=== PATIENT | female | born 1940 | race African-American/Black ===

== ENCOUNTER 2018-01-17 14:44 | Emergency (ER) | payer MEDICARE, BC ==
[2016-09-29 17:35] VITALS: BMI 25.7
[~2018-01-17 14:44] MED LIST: AMOXICILLI400 MG/5 M PO; ARICEPT10 MG PO; BUMEX 1 MG TAB1 MG PO; COREG 3.1253.125 MG PO; FISH OIL 1,0001 CA1 PO; GABAPENTIN100 MG PO; GLUCOPHAGE500 MG PO; GLUCOTROL 5 MG T5 MG PO; JANUVIA100 MG PO; K-DUR20 MEQ PO; KLOR-CON M2020 MEQ PO; LEVAQUIN500 MG PO; LISINOPRIL5 MG PO; PLAVIX75 MG PO; PRILOSEC20 MG PO; PRINIVIL20 MG PO; PROBIOTIC1 EAC1 PO; SCOT-TUSSI10 MG/5 ML PO; ULTRAM50 MG PO; VITAMIN B-1250 MCG PO; ZOCOR40 MG PO
[2018-01-17 15:52] LABS: BASOPHILS 0.4 % (0-2); EOSINOPHILS 2.7 % (0-7); HEMATOCRIT 32.9 % (36.0-48.0); HEMOGLOBIN 10.4 g/dL (12-16); IMMATURE GRANULOCYTES 0.4 % (0-5); MCH 27.5 pg (26.0-34.0); MCHC 31.6 g/dL (31.0-37.0); MEAN PLATELET VOLUME 9.7 fL (7.4-10.4); MONOCYTES 7.5 % (2-11); PLATELET COUNT 199 10x3/uL (130-400); RBC 3.78 10x6/uL (4.00-5.40); RDW 14.5 % (11.5-14.5); WBC 5.2 10x3/uL (4.8-10.8)
[2018-01-17 16:18] LABS: ALBUMIN 3.5 g/dL (3.4-5.0); ALKALINE PHOSPHATASE 108 U/L (46-116); ALT (SGPT) 17 U/L (10-68); BILIRUBIN - TOTAL 0.81 mg/dL (0.2-1.3); CALC OSMOLALITY 285 mosm/kg (275-300); CALCIUM 8.6 mg/dL (8.5-10.1); CARBON DIOXIDE 26.2 mmol/L (21.0-32.0); CHLORIDE - SERUM 105 mmol/L (98-107); CREATININE - SERUM 1.5 mg/dL (0.6-1.3); GLUCOSE 146 mg/dL (74-106); POTASSIUM - SERUM 3.2 mmol/L (3.5-5.1); PROTEIN - SERUM 6.9 g/dL (6.4-8.2); SODIUM 141 mmol/L (136-145); UREA NITROGEN 18 mg/dL (7-18); eGFR NON AFRICAN AMERICAN 35 mL/min (90-120)
[2018-01-17 16:23] LABS: CKMB 1.5 U/L (0.0-3.6); CREATINE KINASE 88 UL (21-215); TROPONIN-I 0.039 ng/mL (0.000-0.060)
== END 2018-01-17 20:15 | disposition home or self-care (01) ==
LOC: D.ER 14:44
PROVIDERS: Family Medicine
DX: R07.89 Other chest pain (principal); I25.10 Atherosclerotic heart disease of native coronary artery without angina pectoris; E11.9 Type 2 diabetes mellitus without complications; E87.6 Hypokalemia; I45.10 Unspecified right bundle-branch block; I44.4 Left anterior fascicular block

== ENCOUNTER 2018-03-06 16:12 | Observation (INO) | payer MEDICARE, BC ==
[~2018-03-06] VITALS: Ht 157.5 cm; Wt 74.1 kg
[2018-03-06 17:40] VITALS: BP 159/66; Ht 157.5 cm; Wt 74.1 kg
[2018-03-06 18:23] LABS: ANION GAP 15.8 mmol/L (8-16); CALCIUM 8.6 mg/dL (8.5-10.1); CARBON DIOXIDE 25.2 mmol/L (21.0-32.0); CREATININE - SERUM 2.4 mg/dL (0.6-1.3)
[2018-03-06 20:11] VITALS: BP 122/58
[2018-03-07 00:11] VITALS: BP 123/41
[2018-03-07 05:39] VITALS: BP 99/53
[2018-03-07 06:02] LABS: CALCIUM 8.5 mg/dL (8.5-10.1); CARBON DIOXIDE 24.9 mmol/L (21.0-32.0); CREATININE - SERUM 2.2 mg/dL (0.6-1.3)
[2018-03-07 06:38] LABS: ANION GAP 15.1 mmol/L (8-16)
[2018-03-07 08:29] VITALS: BP 121/48
[2018-03-07 11:45] VITALS: BP 116/51
[2018-03-07] MEDS ORDERED: GLIMEPIRIDE1 MG PO (12:06)
[2018-03-07] MEDS ORDERED: ZOCOR40 MG PO (12:06)
== END 2018-03-07 15:03 | disposition home or self-care (01) ==
LOC: D.M2 16:12 → OBSVTIME 16:15 → D.M2 03-07 15:03
PROVIDERS: Internal Medicine Cardiovascular Disease
DX: I50.21 Acute systolic (congestive) heart failure (principal); I25.10 Atherosclerotic heart disease of native coronary artery without angina pectoris; I34.0 Nonrheumatic mitral (valve) insufficiency

== ENCOUNTER 2018-05-31 14:05 | Inpatient (IN) | payer MEDICARE, BC ==
[~2018-05-31] VITALS: Ht 154.9 cm; Wt 71.4 kg
--- NOTE | ~2018-05-31 | MORECARE ---
CASE MANAGEMENT DISCHARGE SUMMARY PATIENT: KIERRA BLAKE JET UNIT: [id number] ADM DATE: 05/31/18 AGE: 77 : 38 SEX: F ROOM/BED: D.[facility] [place] AUTHOR: CASE, INFORMATICS SCIENTIST PHYSICIAN: REFERRING PHYSICIAN: RESHMA HOROWITZ MD DATE OF SERVICE: 05/31/18 Discharge Plan Patient Name: KIERRA BLAKE Facility: [facility]:[place] : 1940 Planned Disposition: Home Anticipated Discharge Date: 06/02/18 Discharge Date: Expected LOS: 2 Initial Reviewer: [id number] Initial Review Date: 05/31/2018 Generated: 06/01/18 1:09 pm Patient Name: KIERRA BLAKE Page [phone] All edits/amendments must be made on the electronic document DICTATION DATE: 06/01/181207 JEWELRY RACKER: 06/01/18 1208 RPT#: [id number] DC DATE: STATUS: ADM IN [facility] [address] [place] [address] END OF REPORT
--- NOTE | ~2018-05-31 | HEMODYNAMI ---
PATIENT:KIERRA BLAKE MEDICAL RECORD: [id number] : 36 LOCATION:[facility] D.2114 ADMISSION DATE: 05/31/18 Generatedon:06/02/201810:01 Patient name: KIERRA BLAKE Patient #: [id number] : 1940 Date of study: 06/02/2018 Page: Of Hemodynamic Procedure Report Patient Data Patient Demographics Procedure consent was obtained First Name: KIERRA Gender: Female Last Name: LOU : 1940 [facility] Initial: JET Age: 77 year(s) Patient #: [id number] Race: Black SSN: [id number] Additional ID: [id number] Contact details [address]: [address] [place] [address] State: [place] City: [place] Zip code: [address] Past Medical History Allergies Allergen Reaction Date Comments Reported Other allergy 10/02/2016 Sulfa Admission Admission Data Admission Date: 05/31/2018 Admission Time: 18:58 Room #: D.2114 Procedure Procedure Types Cath Procedure Diagnostic Procedure PPM/ICD PPM Dual Implant Procedure Description Procedure Date Procedure Date: 06/02/2018 Procedure Start Time: 9:14 Procedure End Time: 10:00 Procedure Staff Name Function David Nguyen MD Performing Physician Jarrell Levi MD Assisting physician Marc Rahman RT Monitor Syed Todd RN Nurse Stuart Silva RT Scrub Procedure Data Cath Procedure Fluoroscopy Diagnostic fluoroscopy Total fluoroscopy Time: 2 time: 2 min min Diagnostic fluoroscopy Total fluoroscopy dose: 35 dose: 35 mGy mGy Contrast Material Contrast Material Type Amount (ml) Isovue 300 0 Estimated blood loss: 5 ml Procedure Complications No complications Procedure Medications Medication Administration Route Dosage 0.9% NaCl I.V. 100 ml/hr Oxygen etCO2 Nasal cannula 2 l/min Lidocaine 1% with added to field 20 ml Epi Bupivacaine 0.5% added to field 10 ml Ancef (1Gm/50ml NS) I.V.P.B 1 g Ancef Irrigation Topical 1 g (1gm/500ml NS) Versed I.V. 1 mg Fentanyl I.V. 50 mcg Versed I.V. 1 mg Fentanyl I.V. 50 mcg Hemodynamics Rest Heart Rate: 38 (bpm) Snapshots Pre Cath Intra NCS Post Cath Vital Signs Time Heart Resp SPO2 etCO2 NIBP (mmHg) Rhythm Pain Sedation Rate (ipm) (%) (mmHg) Status Level (bpm) 9:01:50 40 20 100 36.9 171/68(141) NSR 0 (11) 10(A) , No pain 9:06:25 39 12 100 40.7 142/54(110) NSR 0 (11) 10(A) , No pain 9:10:49 40 12 100 42.2 136/54(108) NSR 0 (11) 10(A) , No pain 9:16:17 86 24 100 45.3 154/66(122) NSR 0 (11) 10(A) , No pain 9:20:31 40 19 100 48.3 130/60(109) NSR 0 (11) 10(A) , No pain 9:24:43 52 18 100 50.5 123/67(112) NSR 0 (11) 9(A) , No pain 9:29:46 48 12 100 47.5 158/70(125) NSR 0 (11) 9(A) , No pain 9:34:14 44 18 100 48.3 130/55(104) NSR 0 (11) 9(A) , No pain 9:38:28 48 15 99 46 144/65(112) NSR 0 (11) 9(A) , No pain 9:42:48 47 15 100 44.5 144/62(107) NSR 0 (11) 9(A) , No pain 9:47:06 59 14 100 47.5 147/67(117) NSR 0 (11) 9(A) , No pain 9:51:26 65 18 100 44.5 147/67(117) NSR 0 (11) 9(A) , No pain 9:55:44 60 15 100 46.7 152/72(124) NSR 0 (11) 9(A) , No pain 10:00:05 59 15 100 42.9 162/72(127) NSR 0 (11) 9(A) , No pain Medications Time Medication Route Dose Verified Delivered Reason Notes Effective ness by by 9:09:52 0.9% NaCl I.V. 100 Syed Syed Per ml/hr Peyton Todd physician RN RN 9:10:07 Oxygen etCO2 2 Syed Syed Per Nasal l/min Peyton Sloanigan physician cannula RN RN 9:11:47 Lidocaine added 20 ml Syed Syed for local 1% with Epi to Lorigan Lorigan anesthetic field RN RN 9:12:10 Bupivacaine added 10 ml Syed Syed for local 0.5% to Lorigan Lorigan anesthetic field RN RN 9:12:25 Ancef I.V.P.B 1 g Syed Syed Per (1Gm/50ml Lorigan Lorigan physician NS) RN RN 9:12:39 Ancef Topical 1 g Syed Syed used for Irrigation Lorigan Lorigan procedure (1gm/500ml RN RN NS) 9:12:59 Versed I.V. 1 mg Syed Syed for Lorigan Lorigan sedation RN RN 9:13:10 Fentanyl I.V. 50 Syed Syed for mcg Lorigan Lorigan sedation RN RN 9:18:33 Versed I.V. 1 mg Syed Syed for Lorigan Lorigan sedation RN RN 9:18:39 Fentanyl I.V. 50 Syed Syed for mcg Lorigan Lorigan sedation RN lidar scientist Log Time Note 8:30:09 Medtronic assisted sales representative Rashard Hernandez present for procedure. 8:30:45 Marc Rahman RT(R) sent for patient. Start room use. 8:30:46 Time tracking: Regular hours (M-F 7:00 - 5:00) 8:30:51 Plan of Care:Hemodynamics will remain stable., Cardiac rhythm will remain stable., Comfort level will be maintained., Respiratory function will remain adequate., Patient/ family verbilizes understanding of procedure., Procedure tolerated without complication., Recovers from procedure without complications.. 8:44:51 Patient received from Med II to CCL 3 Alert and oriented. Tansferred to table in Supine position. 8:44:52 Warm blankets applied, and abdias hugger turned on for patient comfort. 8:44:53 Correct patient and procedure confirmed by team. 8:44:54 Signed procedure consent form obtained from patient. 8:44:55 Pre-procedure instructions explained to patient. 8:44:55 Pre-op teaching completed and patient verbalized understanding. 8:44:57 Family in patients room. 8:44:58 Patient NPO since Midnight. 8:59:24 ECG and BP/O2 sat monitors applied to patient. 8:59:24 Vital chart was started 8:59:27 Baseline sample Acquired. 8:59:33 Rhythm: sinus bradycardia 8:59:35 Full Disclosure recording started 8:59:42 H&P Date Dictated: 06/01/2018 Within 30 days and on chart.. 8:59:51 Is the patient allergic to Iodine/contrast media? No. 8:59:53 Is patient on blood thinner?Yes 8:59:55 ACC The patient was administered the following blood thiners within the last 24 hours: ACCPlavix 8:59:57 Patient diabetic? Yes. 8:59:58 If diabetic: On Metformin? No 9:00:01 Previous problem with sedation/anesthesia? Yes Difficulty waking up 9:00:03 Snore? Yes 9:00:04 Sleep apnea? Yes 9:00:06 Deviated septum? No 9:00:22 Opens mouth fully? Yes 9:00:22 Sticks out tongue? Yes 9:00:24 Airway obstruction? No ? 9:00:38 Dentures? No ? 9:00:42 Patient pain scale 0/10 ?. 9:00:46 IV patent on arrival in left forearm with 0.9% NaCl at KVO. 9:00:48 Lab results completed and on chart. 9:00:52 Left chest area was prepped with chlora-prep and draped in sterile fashion 9:00:53 Alarms reviewed by R. N. 9:00:54 Sharps counted by scrub and verified by R.N. 9:01:43 Pre sharps counted by scrub and verified by RN: Sutures: 14; Sponges: 5; Stick needles: 2; Skin needles: 2; Blade: 1; Cautery: 1 9:01:46 Grounding pad site Left thigh. 9:01:48 Grounding pad site free from injury. 9:02:57 Use device set JESSA PPM 9:03:00 Immobilizer Sling Medium opened to sterile field. 9:03:03 Mepilex Dressing (711791) opened to sterile field. 9:03:04 Cautery Pushbutton Pencil opened to sterile field. 9:03:04 Cautery Tip Contracting Analyst opened to sterile field. 9:03:07 2-0 Ticron Multipack ([id number]) opened to sterile field. 9:03:10 3-0 Vicryl Single Pack [id number] opened to sterile field. 9:03:28 3-0 Vicryl Multipack [id number] opened to sterile field. 9:03:53 Medtronic Advisa MRI PPM Dual Generator [id number] opened to sterile field. 9:03:53 Medtronic 4074-52 PPM Lead opened to sterile field. 9:03:54 Medtronic 4574-45 PPM Lead opened to sterile field. 9:09:52 0.9% NaCl 100 ml/hr I.V. was administered by Syed Todd RN; Per physician; 9:10:07 Oxygen 2 l/min etCO2 Nasal cannula was administered by Syed Todd RN; Per physician; 9:11:10 --------ALL STOP TIME OUT------ 9:11:11 Final Timeout: patient, procedure, and site verified with staff and physician. All members of the team are in agreement. 9:11:16 Left chest site verified by team. 9:11:22 Physical assessment completed. ASA score P 2 - A patient with mild systemic disease as per David Nguyen MD. 9:11:26 Sedation plan: IV Moderate Sedation Medication:Versed, Fentanyl 9:11:47 Lidocaine 1% with Epi 20 ml added to field was administered by Syed Todd RN; for local anesthetic; 9:12:10 Bupivacaine 0.5% 10 ml added to field was administered by Syed Todd RN; for local anesthetic; 9:12:25 Ancef (1Gm/50ml NS) 1 g I.V.P.B was administered by Syed Todd RN; Per physician; 9:12:39 Ancef Irrigation (1gm/500ml NS) 1 g Topical was administered by Syed Todd RN; used for procedure; 9:12:59 Versed 1 mg I.V. was administered by Syed Todd RN; for sedation; 9:13:10 Fentanyl 50 mcg I.V. was administered by Syed Lorigan RN; for sedation; 9:14:08 Procedure started. 9:14:19 Lidocaine 1% w/epi and Bupivacaine 0.5% was administered to left subclavicular area by Jarrell Levi MD . 9:14:50 Incision made to left subclavicular area. 9:17:24 Generator pocket made/opened. 9:18:33 Versed 1 mg I.V. was administered by Syed Todd RN; for sedation; 9:18:39 Fentanyl 50 mcg I.V. was administered by Syed Todd RN; for sedation; 9:27:26 Left subclavian vein accessed with 9Fr Peel Away Sheath. 9:28:35 Ventricular lead inserted and advanced. 9:28:41 Peel-a-way sheath was split and removed. 9:29:11 Sheath wire left down and 7fr sheath inserted over that wire. 9:29:21 Atrial lead inserted and advanced. 9:31:42 Ventricular lead positioned. 9:31:45 Ventricular lead tested. 9:32:58 Ventricular lead attachment was completed with 2-0 ticron. 9:38:43 Atrial lead positioned. 9:38:45 Atrial lead tested. 9:40:50 Atrial lead attachment was completed with 2-0 ticron. 9:43:52 PPM Dual was attached to lead(s) and inserted into pocket. 9:47:01 2-0 Ticron Multipack ([id number]) opened to sterile field. 9:47:02 Generator was sutured in place with 2-0 ticron. 9:47:06 Device pocket was irrigated with Ancef. 9:50:27 Subcutaneous closure was completed with 3-0 vicryl. 9:54:31 Skin closure was completed with 3-0 vicryl. 9:57:26 Lt Chest incision was dressed with Mepilex dressing. 9:57:32 Procedure ended.(Physican Out) 9:57:48 Fluoroscopy time 02.00 minutes. 9:57:53 Flurop Dose total: 35 9:57:53 Fluoroscopy dose: 35 mGy 9:57:59 Contrast amount:Isovue 300 0ml. 9:58:01 Sharps counted by scrub and verified by R.N. 9:59:15 Post sharps counted by scrub and verified by RN: Sutures: 19; Sponges: 5; Stick needles: 2; Skin needles: 2; Blade: 1; Cautery: 1 9:59:20 Insertion/operative site no bleeding no hematoma. 9:59:26 Post-procedure physical assessment completed. ASA score P 2 - A patient with mild systemic disease as per David Nguyen MD. 9:59:36 Post procedure rhythm: paced 9:59:46 Estimated blood loss: 5 ml 9:59:48 Post procedure instruction explained to patient.Patient verbalizes understanding. 9:59:49 Patient needs reinforcement of post procedure teaching. 10:00:02 Procedure Complication : No complications 10:00:33 Procedure and supply charges have been captured, reviewed, submitted and are correct. 10:00:36 Vital chart was stopped 10:00:36 See physician's report for complete and final results. 10:00:38 Report given to PCU. 10:00:42 Patient transfered to PCU with Bed. 10:00:44 Procedure ended. 10:00:44 Full Disclosure recording stopped 10:00:48 End room use (Document Last) Device Usage Item Name Manufacture Quantity Catalog Hospital Part Current Minimal Lot# / Number Charge Number Stock Stock Serial# Code Immobilizer Cardinal 1 [id number] 5 Sling Medium Health Mepilex Cardinal 1 408659 312775 535676 353413 5 Dressing Health (930768) Cautery Microtek 1 [id number] 597273 82934 049256 5 Pushbutton Medical Inc. Pencil Cautery Tip Microtek 1 [id number] 827681 007655 210178 5 Contracting Analyst Medical Inc. 2-0 Ticron Ethicon 2 [id number] 707054 81338 030940 5 Multipack ([id number]) 3-0 Vicryl Ethicon 1 [id number] 562426 954551 5 Single Pack [id number] 3-0 Vicryl Ethicon 1 [id number] 898174 571637 167402 5 Multipack [id number] Medtronic Medtronic 1 [id number] 221626 875381 5 [id number] Advisa MRI EXP PPM Dual 19 Generator [id number] Medtronic Medtronic 1 4074-52 859899 227945 5 [id number] 4-52 PPM EXP Lead 24-20 Medtronic Medtronic 1 4574-45 454100 240229 5 [id number] 4574-45 PPM EXP 03-06-20 Lead Signature Audit [place] Stage Time Signature Unsigned Intra-Procedure 06/02/2018 Marc Rahman 10:01:10 AM RT(R) Signatures Monitor : Marc Rahman RT Signature : Date : Time : [place] [address] [place] [address]
--- NOTE | ~2018-05-31 | OP ---
PATIENT NAME: ROOPA BLAKE MEDICAL RECORD: [id number] :36 LOCATION:D.M2 D.2114 ADMISSION DATE:05/31/18 SURGEON: CARLOS ALBERTO RENNER MD DATE OF OPERATION: 06/02/2018 PROCEDURE: Lead portion of permanent pacemaker placement. INDICATION: Mobitz II high-degree AV block, symptomatic. DESCRIPTION OF PROCEDURE: After left subclavian was cannulated via modified Seldinger technique via Dr. Levi, first, under fluoroscopic guidance, I placed the RV lead in RV apex without difficulty. After adequate R waves and thresholds were obtained, we then placed right atrial lead in right atrial appendage without difficulty. After adequate R waves and thresholds were again obtained, leads were attached to appropriate poles of the generator and the pocket was closed via Dr. Levi. IMPRESSION: Successful lead portion of permanent pacemaker placement on Roopa Blake. COMPLICATIONS: None. ESTIMATED BLOOD LOSS: Minimal. DISPOSITION: To the floor, stable. TRANSINT:[id number] Voice Confirmation ID: [id number] DOCUMENT ID: [id number] CARLOS ALBERTO RENNER MD at 1117 CC: [id number] DICTATION DATE: 06/02/18 0946 WIRE BOUND BOX MACHINE HELPER: 06/02/18 1352 ADM IN [place] [id number] [place] [id number]
--- NOTE | ~2018-05-31 | CN ---
PATIENT NAME:KIERRA BLAKE MEDICAL RECORD: [id number] : 36 LOCATION:. D.2114 ADMIT DATE: 05/31/18 ACCOUNT: [id number] CONSULTING PHYSICIAN: CARLOS ALBERTO RENNER MD REFERRING PHYSICIAN: RESHMA HOROWITZ MD DATE OF CONSULTATION: 06/01/2018 HISTORY OF PRESENT ILLNESS: A 77-year-old lady with a history of cardiomyopathy, EF 35% to 40%, history of hyperlipidemia presented to outside clinic with nausea, was found to be bradycardiac. In talking to the patient, she believes she took extra carvedilol, although even double dose at her current dose she has not been hypotensive. No other symptomatology actually. We are asked to see her concerning her cardiovascular status. PAST MEDICAL HISTORY: Includes: 1. History of cardiomyopathy as described above. 2. Hypertension. 3. Hyperlipidemia. 4. Coronary artery bypass grafting. ALLERGIES: CONTRAST, SULFA. MEDICATIONS: Include simvastatin 40 every day, carvedilol 3.125 b.i.d., Plavix 75 every day, Amaryl 1 mg every day, Januvia 100 mg p.o. every day, Bumex 1 mg every day. SOCIAL HISTORY: Lives in the [facility]. She is a nonsmoker, nondrinker. Easily takes care of all her ADLs. REVIEW OF SYSTEMS: The patient reports easy bruising but reports no swollen glands. The patient reports no fever, no night sweats, no significant weight gain, no significant weight loss. No significant exercise tolerance. The patient reports no dry eyes, no irritation, no vision change. Patient reports no difficulty hearing and no ear pain. Patient reports no frequent nose bleeds or nose and sinus problems. Patient reports on arm pain on exertion. No shortness of breath while lying down. No history of heart murmur. Patient reports no cough, no wheezing or coughing up blood. Patient reports no abdominal pain, no vomiting. Normal appetite. No diarrhea and not vomiting blood. No nausea and no constipation. Patient reports no incontinence. No difficulty urinating. No hematuria. No increased frequency. Patient reports no muscle aches. No weakness, no arthralgias, no back pain. No swelling of the extremities. Patient reports no abnormal mole, no jaundice, no rashes. Reports no loss of consciousness. No weakness and no numbness. No seizures, dizziness, or headaches. The patient reports no depression, no sleep disturbance, feeling safe in a relationship and no alcohol abuse. Patient reports on fatigue. Reports no runny nose or sinus pressure. No itching, no hives, and no frequent sneezing. PHYSICAL EXAMINATION: GENERAL: Pleasant female, appears stated age, in no acute distress. HEENT: Normocephalic, atraumatic. NECK: No bruits noted. HEART: Bradycardic, regular, II/ systolic ejection murmur. LUNGS: Good air excursion. ABDOMEN: Soft, nontender. CONSULT REPORT [id number] KIERRA BLAKE EXTREMITIES: Pulses 2+ with no edema. NEUROLOGIC: Grossly intact. DIAGNOSTIC DATA: EKG shows sinus bradycardia with first-degree block. IMPRESSION: Suspect may have true sick sinus syndrome at this point, fairly bradycardic for even double dose of her carvedilol. However, if she feels, given her lack of symptoms etc., would prefer to defer pacemaker and further invasive workup at this time. If she remains stable, could consider discharge with follow up with a 30-day monitor in our office. TRANSINT:[id number] Voice Confirmation ID: [id number] DOCUMENT ID: [id number] CARLOS ALBERTO RENNER MD at 1116 CC: [id number] DICTATION DATE: 06/01/18 1010 VENEER SPLICER: 06/01/18 1116 ADM IN [place] [id number] [place] [address]
--- NOTE | ~2018-05-31 | OP ---
PATIENT NAME: KIERRA BLAKE MEDICAL RECORD: [id number] :36 LOCATION:D.M2 D.2114 ADMISSION DATE:05/31/18 SURGEON: SHANIKA VÁZQUEZ MD DATE OF OPERATION: 06/02/2018 PREOPERATIVE DIAGNOSIS: Mobitz II heart block. POSTOPERATIVE DIAGNOSIS: Mobitz II heart block. PROCEDURES: Creation of pacemaker pocket. Introduction of atrial and ventricular leads into the vascular system. Placement of pacemaker generator into the pacemaker pocket with closure. This was a co-surgeon case. FACILITIES MAINTENANCE SUPERVISOR: David Breaux MD SURGEON: Shanika Vázquez MD BLOOD LOSS: Minimal. ANESTHESIA: Local with IV sedation. COMPLICATIONS: None. This was a cosurgeon case. Due to the complexity of the operation, it was necessary to have 2 attending surgeons present, a tennis camp instructor and a general surgeon. DESCRIPTION OF PROCEDURE: The patient was conveyed to the cardiac catheterization laboratory on 06/02/2018. IV sedation was induced by the nursing staff under my direction. The left chest was sterilely prepped and draped. A local anesthetic was used to infiltrate the skin and subcutaneous tissues inferior to the left clavicle. A transverse incision was accomplished inferior to the left clavicle. A subcutaneous pocket was fashioned bluntly in a caudad direction. I had an senior it assistant pull down on the left arm toward the foot. Through the pacemaker pocket, I was able to advance a needle under the left clavicle, utilizing an antegrade approach to the subclavian vein. This was visualized under fluoroscopy. A guidewire passed easily. This was visualized under fluoroscopy as well. A 9-Niuean dilator sheath was advanced over the wire. This was visualized under fluoroscopic guidance. The dilator was removed. Through the 9-Niuean sheath, the ventricular lead was advanced. Dr. Oliva positioned the ventricular lead. Appropriate thresholds were obtained. I then sutured the ventricular lead down to the underlying pectoralis fascia with 2-0 TiCron times 2. Over the secondary wire, a 7-Niuean dilator sheath was advanced. This was visualized under fluoroscopic guidance. The dilator and wire were removed. Through the sheath, an atrial lead was advanced. The Peel-Away sheath was then removed. Dr. Oliva then positioned the atrial lead. Appropriate thresholds were obtained. I then sutured the atrial lead down to the underlying pectoralis fascia with 2-0 TiCron times 2. The pacemaker generator was then brought onto the sterile field. I confirmed with the pacemaker distribution sales representative the serial number on the ventricular lead. It was then placed within the ventricular dock of the pacemaker and tightened down with the wrench. I tried to dislodge the ventricular lead and was unable to do so. I then confirmed with pacemaker distribution sales representative the serial number on the atrial lead. This was placed in the atrial dock of the pacemaker generator and then OPERATIVE REPORT [id number] KIERRA BLAKE JET tightened down with the wrench. I tried to dislodge the atrial lead and was unable to do so. The pacemaker generator and wires were then placed in the pacemaker pocket. Care was paid to place the wires posterior to the generator. The pacemaker was then sutured to the underlying pectoralis fascia with 2-0 TiCron times 1. I irrigated the pacemaker pocket. There was no bleeding even at low pressure of 8. The deep adipose tissue was closed with interrupted 3-0 Vicryls. The subcutaneous adipose tissue was closed with interrupted 3-0 Vicryls. The skin was approximated with a running intracuticular 3-0 Vicryl. A sterile dressing was applied. We then examined the pacemaker generator and the wires again. The wires appeared to have been well placed and had not been dislodged. The pacemaker generator appeared to be in good position. There was no radiographic evidence of complication. The patient was then conveyed back to their room. I will see the patient on a p.r.n. basis. There is no need for the patient to follow up with me unless the patient develops a complication related to this operative procedure. My involvement in the procedure was creation of the pacemaker pocket, vascular access into the central venous system, placement of the pacemaker generator into the pocket and then closure. TRANSINT:[id number] Voice Confirmation ID: [id number] DOCUMENT ID: [id number] SHANIKA VÁZQUEZ MD at 1023 CC: RESHMA HOROWITZ MD and DAVID RENNER MD [id number] DICTATION DATE: 06/02/18 1012 NEWS VIDEOTAPE EDITOR: 06/02/18 1408 DIS IN 06/03/18 [facility] [address] [place] [address]
[~2018-05-31 14:05] MED LIST changes: +GLIMEPIRIDE1 MG PO
[2018-05-31 15:15] VITALS: BP 159/64
[2018-05-31 15:28] LABS: BASOPHILS 0.2 % (0-2); EOSINOPHILS 2.7 % (0-7); HEMATOCRIT 36.5 % (36.0-48.0); HEMOGLOBIN 12.1 g/dL (12-16); IMMATURE GRANULOCYTES 0.2 % (0-5); MCH 26.4 pg (26.0-34.0); MCHC 33.2 g/dL (31.0-37.0); MCV 79.5 fL (80.0-100.0); MEAN PLATELET VOLUME 10.2 fL (7.4-10.4); MONOCYTES 6.5 % (2-11); NEUTROPHILS 50.4 % (40-80); RBC 4.59 10x6/uL (4.00-5.40); RDW 15.5 % (11.5-14.5)
[2018-05-31 15:29] LABS: PLATELET COUNT 146 10x3/uL (130-400)
[2018-05-31 15:30] LABS: APPEARANCE CLEAR (CLEAR); BILIRUBIN NEGATIVE (NEGATIVE); COLOR STRAW (YELLOW); GLUCOSE 100 mg/dL (NEGATIVE); KETONE NEGATIVE (NEGATIVE); NITRITE NEGATIVE (NEGATIVE); PROTEIN NEGATIVE (NEGATIVE); UROBILINOGEN NORMAL (NORMAL)
[2018-05-31 15:32] LABS: EPITHELIAL CELLS 0-5 /hpf (0-5); RED CELLS - URINE 0-5 /hpf (0-5); WHITE CELLS - URINE 0-5 /hpf (0-5)
[2018-05-31 15:33] LABS: BACTERIA FEW /hpf (NONE SEEN)
[2018-05-31 15:41] LABS: APTT 22.3 SECONDS (22.8-39.4); INR 1.05 (0.85-1.17); PROTIME 13.3 SECONDS (11.6-15.0)
[2018-05-31 15:42] LABS: D-DIMER-QUANTITATIVE 1.71 ug/mLFEU (0.20-0.54)
[2018-05-31 15:45] LABS: ALBUMIN 3.4 g/dL (3.4-5.0); ALKALINE PHOSPHATASE 118 U/L (46-116); ALT (SGPT) 23 U/L (10-68); BILIRUBIN - TOTAL 0.87 mg/dL (0.2-1.3); CALC OSMOLALITY 292 mosm/kg (275-300); CALCIUM 9.1 mg/dL (8.5-10.1); CARBON DIOXIDE 30.5 mmol/L (21.0-32.0); CHLORIDE - SERUM 103 mmol/L (98-107); CREATININE - SERUM 1.5 mg/dL (0.6-1.3); POTASSIUM - SERUM 3.8 mmol/L (3.5-5.1); SODIUM 140 mmol/L (136-145); UREA NITROGEN 21 mg/dL (7-18); eGFR NON AFRICAN AMERICAN 35 mL/min (90-120)
[2018-05-31 15:46] LABS: GLUCOSE 289 mg/dL (74-106)
[2018-05-31 15:58] LABS: CKMB 1.2 U/L (0.0-3.6); LIPASE 395 U/L (73-393); TROPONIN-I 0.016 ng/mL (0.000-0.060)
[2018-05-31 16:15] VITALS: BP 146/68
[2018-05-31 17:00] VITALS: BP 168/99
[2018-05-31 19:05] LABS: T4 THYROXIN - FREE 1.33 ng/dL (0.76-1.46); THYROID STIMULATING HORMONE 1.72 uIU/mL (0.36-3.74)
[2018-05-31 19:31] VITALS: BP 168/99
[2018-05-31 20:16] LABS: % SATURATION 26 % (15-55); IRON 87 ug/dl (35-150); TOTAL IRON BIND CAPACITY 330 ug/dl (260-445); UNSAT IRON BIND CAPACITY 243 ug/dl (150-375)
[2018-05-31 20:22] LABS: CKMB 1.1 U/L (0.0-3.6); CREATINE KINASE 87 UL (21-215)
[2018-05-31 22:22] VITALS: BP 156/54; Ht 154.9 cm; Wt 71.4 kg
[2018-06-01] VITALS: BP 150/48
[2018-06-01 01:46] LABS: CREATINE KINASE 79 UL (21-215); TROPONIN-I 0.025 ng/mL (0.000-0.060)
[2018-06-01 04:00] VITALS: BP 142/44
[2018-06-01 05:05] LABS: BASOPHILS 0.3 % (0-2); EOSINOPHILS 3.6 % (0-7); HEMATOCRIT 34.5 % (36.0-48.0); HEMOGLOBIN 11.1 g/dL (12-16); IMMATURE GRANULOCYTES 0.3 % (0-5); LYMPHOCYTES 39.2 % (15-50); MCH 25.7 pg (26.0-34.0); MCHC 32.2 g/dL (31.0-37.0); MCV 79.9 fL (80.0-100.0); MEAN PLATELET VOLUME 10.4 fL (7.4-10.4); MONOCYTES 8.8 % (2-11); NEUTROPHILS 47.8 % (40-80); PLATELET COUNT 150 10x3/uL (130-400); RBC 4.32 10x6/uL (4.00-5.40); RDW 15.4 % (11.5-14.5); WBC 3.7 10x3/uL (4.8-10.8)
[2018-06-01 05:19] LABS: ALBUMIN 3.1 g/dL (3.4-5.0); ALKALINE PHOSPHATASE 110 U/L (46-116); ALT (SGPT) 22 U/L (10-68); BILIRUBIN - TOTAL 1.05 mg/dL (0.2-1.3); CALCIUM 8.9 mg/dL (8.5-10.1); CHLORIDE - SERUM 105 mmol/L (98-107); CKMB 0.9 U/L (0.0-3.6); CREATINE KINASE 69 UL (21-215); CREATININE - SERUM 1.5 mg/dL (0.6-1.3); PROTEIN - SERUM 6.4 g/dL (6.4-8.2); SODIUM 143 mmol/L (136-145); TROPONIN-I 0.024 ng/mL (0.000-0.060); UREA NITROGEN 21 mg/dL (7-18); eGFR NON AFRICAN AMERICAN 35 mL/min (90-120)
[2018-06-01 05:20] LABS: CALC OSMOLALITY 293 mosm/kg (275-300); GLUCOSE 199 mg/dL (74-106)
[2018-06-01 07:44] VITALS: BP 143/50
[2018-06-01 11:23] VITALS: BP 137/49
[2018-06-01 14:56] VITALS: BP 134/47
[2018-06-01 20:57] VITALS: BP 148/52
[2018-06-02 06:32] LABS: BASOPHILS 0.2 % (0-2); EOSINOPHILS 2.9 % (0-7); HEMATOCRIT 32.5 % (36.0-48.0); HEMOGLOBIN 10.7 g/dL (12-16); IMMATURE GRANULOCYTES 0.2 % (0-5); LYMPHOCYTES 33.4 % (15-50); MCH 26.1 pg (26.0-34.0); MCHC 32.9 g/dL (31.0-37.0); MCV 79.3 fL (80.0-100.0); MEAN PLATELET VOLUME 9.8 fL (7.4-10.4); NEUTROPHILS 55.3 % (40-80); PLATELET COUNT 135 10x3/uL (130-400); RDW 14.8 % (11.5-14.5)
[2018-06-02 06:38] LABS: WBC 4.8 10x3/uL (4.8-10.8)
[2018-06-02 06:39] LABS: ANION GAP 8.6 mmol/L (8-16); CALCIUM 8.5 mg/dL (8.5-10.1); CARBON DIOXIDE 31.5 mmol/L (21.0-32.0); CREATININE - SERUM 1.6 mg/dL (0.6-1.3); POTASSIUM - SERUM 3.1 mmol/L (3.5-5.1)
[2018-06-02 07:55] VITALS: BP 145/53
[2018-06-02 11:33] VITALS: BP 103/59
[2018-06-02 15:30] VITALS: BP 137/59
[2018-06-02 21:07] VITALS: BP 129/55
[2018-06-03 01:16] VITALS: BP 153/61
[2018-06-03 05:10] VITALS: BP 125/53
[2018-06-03 06:58] LABS: BASOPHILS 0.2 % (0-2); EOSINOPHILS 1.4 % (0-7); HEMATOCRIT 31.6 % (36.0-48.0); HEMOGLOBIN 10.3 g/dL (12-16); IMMATURE GRANULOCYTES 0.2 % (0-5); LYMPHOCYTES 29.3 % (15-50); MCH 25.8 pg (26.0-34.0); MCHC 32.6 g/dL (31.0-37.0); MCV 79.2 fL (80.0-100.0); MEAN PLATELET VOLUME 10.2 fL (7.4-10.4); NEUTROPHILS 61.9 % (40-80); PLATELET COUNT 144 10x3/uL (130-400); RBC 3.99 10x6/uL (4.00-5.40); WBC 5.8 10x3/uL (4.8-10.8)
[2018-06-03 07:17] LABS: ANION GAP 7.2 mmol/L (8-16); CALCIUM 8.4 mg/dL (8.5-10.1); CARBON DIOXIDE 32.3 mmol/L (21.0-32.0); CREATININE - SERUM 1.4 mg/dL (0.6-1.3)
[2018-06-03 07:18] LABS: POTASSIUM - SERUM 3.5 mmol/L (3.5-5.1)
[2018-06-03 10:00] VITALS: BP 155/57
[2018-06-04 05:14] LABS: FOLATE (FOLIC ACID) - SERUM >20.0 ng/mL (>3.0)
== END 2018-06-03 15:15 | disposition home or self-care (01) | DRG 243 ==
LOC: D.ER 14:05 → D.M2 18:58 → D.EDHOLD 18:58 → D.M2 19:02
PROVIDERS: Family Medicine; Internal Medicine Interventional Cardiology; Internal Medicine Nephrology
PROC: 02H63JZ Insertion of Pacemaker Lead into Right Atrium, Percutaneous Approach (ICD-10-PCS; 2018-06-02)
PROC: 02HK3JZ Insertion of Pacemaker Lead into Right Ventricle, Percutaneous Approach (ICD-10-PCS; 2018-06-02)
PROC: 0JH606Z Insertion of Pacemaker, Dual Chamber into Chest Subcutaneous Tissue and Fascia, Open Approach (ICD-10-PCS; principal; 2018-06-02 08:30)
DX: I44.1 Atrioventricular block, second degree (principal); N17.9 Acute kidney failure, unspecified; I10 Essential (primary) hypertension; I25.10 Atherosclerotic heart disease of native coronary artery without angina pectoris; Z95.1 Presence of aortocoronary bypass graft; E11.51 Type 2 diabetes mellitus with diabetic peripheral angiopathy without gangrene; D50.9 Iron deficiency anemia, unspecified

== ENCOUNTER 2019-03-12 19:55 | Observation (INO) | payer MEDICARE, BC ==
[~2019-03-12] VITALS: Ht 154.9 cm; Wt 65.6 kg
[2019-03-12 21:15] VITALS: BP 158/72
--- NOTE | 2019-03-12 21:15 | NUR ---
ORANGE JUICE AND PEANUT BUTTER AND CRACKERS PROVIDED AT THIS TIME.
--- NOTE | 2019-03-12 21:28 | NUR ---
PT GONE FOR SCAN VIA STRETCHER.
--- NOTE | 2019-03-12 22:01 | NUR ---
PT RETURNED FROM RADIOLOGY.
--- NOTE | 2019-03-12 22:08 | NUR ---
SPOKE WITH PT'S DAUGHTER JENNA AT [phone], PT VERBALIZES CONSENT TO INFORM HER OF PT'S CONDITION AND PLAN OF CARE, INFORMED DAUGHTER THAT WE ARE WAITING ON RESULTS OF PT'S VQ SCAN. VERBALIZES UNDERSTANDING, WILL CONTACT WHEN RESULTS ARE AVAILABLE.
--- NOTE | 2019-03-12 22:46 | NUR ---
PLAN OF CARE DISCUSSED WITH PT, PT VERBALIZES UNDERSTANDING. PT REQUEST HEAD OF BED BE LOWERED, DENIES ANY FURTHER NEEDS AT THIS TIME. WILL CONTINUE TO MONITOR.
[2019-03-12 22:56] LABS: BASOPHILS 0.2 % (0-2); EOSINOPHILS 3.3 % (0-7); HEMATOCRIT 31.6 % (36.0-48.0); HEMOGLOBIN 10.2 g/dL (12-16); IMMATURE GRANULOCYTES 0.4 % (0-5); LYMPHOCYTES 24.2 % (15-50); MCH 26.8 pg (26.0-34.0); MCHC 32.3 g/dL (31.0-37.0); MCV 82.9 fL (80.0-100.0); MEAN PLATELET VOLUME 10.3 fL (7.4-10.4); MONOCYTES 7.2 % (2-11); NEUTROPHILS 64.7 % (40-80); PLATELET COUNT 152 10x3/uL (130-400); RBC 3.81 10x6/uL (4.00-5.40); RDW 15.1 % (11.5-14.5); WBC 5.1 10x3/uL (4.8-10.8)
[2019-03-12 23:09] LABS: ALBUMIN 3.3 g/dL (3.4-5.0); ALKALINE PHOSPHATASE 128 U/L (46-116); ALT (SGPT) 52 U/L (10-68); BILIRUBIN - TOTAL 1.05 mg/dL (0.2-1.3); CALC OSMOLALITY 284 mosm/kg (275-300); CALCIUM 8.9 mg/dL (8.5-10.1); CARBON DIOXIDE 25.6 mmol/L (21.0-32.0); CHLORIDE - SERUM 108 mmol/L (98-107); CREATININE - SERUM 1.6 mg/dL (0.6-1.3); POTASSIUM - SERUM 3.6 mmol/L (3.5-5.1); PROTEIN - SERUM 6.5 g/dL (6.4-8.2); SODIUM 140 mmol/L (136-145); UREA NITROGEN 23 mg/dL (7-18); eGFR NON AFRICAN AMERICAN 33 mL/min (90-120)
[2019-03-12 23:10] LABS: GLUCOSE 141 mg/dL (74-106)
[2019-03-12 23:26] LABS: CKMB 1.8 U/L (0.0-3.6); CREATINE KINASE 81 UL (21-215)
[2019-03-12 23:30] LABS: TROPONIN-I 0.084 ng/mL (0.000-0.060)
[2019-03-13 05:20] VITALS: BP 148/70
[2019-03-13 08:00] VITALS: BP 144/68
--- NOTE | 2019-03-13 09:25 | NUR ---
I have reviewed this patient and I concur with the Shift Assessment completed by the Licensed Practical Nurse today this shift.
--- NOTE | 2019-03-13 09:36 | NUR ---
MORNING ROUNDS MADE. PT SITTING UP IN BED. A/O X 4. UP AB RENETTA. DENIES PAIN AT THIS TIME. REAPPLIED TELE LEADS, PACED 69. IV TO L FA, PATENT, NO REDNESS OR EDEMA NOTED, DRSG C/D/I. RM AIR. BREATHING EVEN AND UNLABORED. SCD ON. VITALS STABLE. TOOK MEDS WITHOUT DIFFICULTY. NO FURTHER CONCENRS AT THIS TIME. FALL PRECAUTIONS IN PLACE. NON SKID SOCKS ON. BED LOWERED AND LOCKED. CL IN REACH. WILL CTM.
--- NOTE | 2019-03-13 11:06 | NUR ---
EKG DONE, RESULTS PUT IN PT CHART
[2019-03-13 12:36] VITALS: BMI 27.3
[2019-03-13 12:38] VITALS: BP 178/84
[2019-03-13 16:30] VITALS: BP 182/81
--- NOTE | 2019-03-13 16:56 | NUR ---
PT STATES THAT TAKING HER JANUVIA AT HOME CONTROLS HER BS BP ALSO 182/81 IN R ARM, 183/90 IN LEFT ARM. WILL CONTACT PHYSICIAN ABOUT BP.
--- NOTE | 2019-03-13 17:46 | NUR ---
NASIR NOTIFIED OF PT BP. STATED SHE WOULD START ORDERS FOR APRESOLINE. NO FURTHER ORDERS AT THIS TIME.
--- NOTE | 2019-03-13 17:56 | NUR ---
IV APRESOLINE 10 MG GIVEN TO ELEVATED BP OF 180/90
--- NOTE | 2019-03-13 19:20 | NUR ---
REPORT RECIEVED AND ROUNDING COMPLETE. PT STANDING UP WALKING AROUND ROOM. PT ASKED IF WE HAVE A PHONE FITNESS AND WELLNESS MANAGER THAT MATCHES HER PHONE. PT STATES SHE IS TIRED OF LAYING IN BED. NO S/SX OF DISTRESS AT THIS TIME. CALL LIGHT WITHIN REACH AND BED IN LOWEST POSITION. STATES NO OTHER NEEDS AT THIS TIME.
[2019-03-13 20:00] VITALS: BP 146/63
[2019-03-14] VITALS: BP 164/81
[2019-03-14 04:00] VITALS: BP 168/84
[2019-03-14 07:15] LABS: BASOPHILS 0.2 % (0-2); EOSINOPHILS 2.3 % (0-7); HEMATOCRIT 29.4 % (36.0-48.0); HEMOGLOBIN 9.6 g/dL (12-16); IMMATURE GRANULOCYTES 0.4 % (0-5); LYMPHOCYTES 17.9 % (15-50); MCH 26.8 pg (26.0-34.0); MCHC 32.7 g/dL (31.0-37.0); MCV 82.1 fL (80.0-100.0); MEAN PLATELET VOLUME 9.8 fL (7.4-10.4); MONOCYTES 9.4 % (2-11); NEUTROPHILS 69.8 % (40-80); PLATELET COUNT 134 10x3/uL (130-400); RBC 3.58 10x6/uL (4.00-5.40); WBC 5.6 10x3/uL (4.8-10.8)
[2019-03-14 07:34] LABS: ANION GAP 16.7 mmol/L (8-16); CALCIUM 8.6 mg/dL (8.5-10.1); CARBON DIOXIDE 21.8 mmol/L (21.0-32.0); CREATININE - SERUM 1.5 mg/dL (0.6-1.3); POTASSIUM - SERUM 3.5 mmol/L (3.5-5.1)
[2019-03-14 07:36] VITALS: BP 113/80
--- NOTE | 2019-03-14 07:45 | NUR ---
PT RESTING IN BED WITH EYES CLOSED. OPENS EYES SPONTANEOUSLY WHEN NAME CALLED. NO ACUTE DISTRESS NOTED. DENIES PAIN AT THIS TIME. SALINE LOC TO LEFT AC SITE WITHOUT REDNESS OR EDEMA. DENIES FURTHER NEEDS AT THIS TIME. CL WITHIN REACH. ENCOURAGED TO CALL WITH NEEDS. CONTINUE POC
[2019-03-14 10:09] VITALS: Ht 154.9 cm; Wt 65.6 kg
[2019-03-14 11:24] VITALS: BP 136/61
[2019-03-14] MEDS ORDERED: AUGMENTIN 875-11 TAB PO (12:59)
[2019-03-14] MEDS ORDERED: COREG 3.1253.125 MG PO (13:02)
--- NOTE | 2019-03-17 09:38 | MORECARE ---
CASE MANAGEMENT DISCHARGE SUMMARY PATIENT: KIERRA BLAKE JET UNIT: [id number] ADM DATE: 03/13/19 AGE: 78 : 38 SEX: F ROOM/BED: D.0445 AUTHOR: CHEL BATISTA PHYSICIAN: REFERRING PHYSICIAN: GEORGE ALCALA MD DATE OF SERVICE: 03/17/19 Discharge Plan Patient Name: KIERRA BLAKE [facility] : 1940 Planned Disposition: Home Anticipated Discharge Date: 03/14/19 Discharge Date: 03/14/2019 Expected LOS: 1 Initial Reviewer: [email or web address] Initial Review Date: 03/17/2019 Generated: 03/17/19 10:37 am Patient Name: KIERRA BLAKE Page [phone] at 0938 All edits/amendments must be made on the electronic document DICTATION DATE: 03/17/19936 LIQUOR GALLERY OPERATOR: TOMAS 03/17/1939 RPT#: [id number] DC DATE:03/14/19 STATUS: DIS IN [facility] [address] [place] [address] END OF REPORT
== END 2019-03-14 15:15 | disposition home or self-care (01) ==
LOC: D.ER 19:55 → D.M2 03-13 00:10 → OBSVTIME 03-13 00:10 → D.M2 03-14 15:15
PROVIDERS: Family Medicine; ADMIT Emergency Medicine; ATTEND Emergency Medicine
DX: R60.0 Localized edema (principal); R79.89 Other specified abnormal findings of blood chemistry; I10 Essential (primary) hypertension; E11.9 Type 2 diabetes mellitus without complications; I25.10 Atherosclerotic heart disease of native coronary artery without angina pectoris

== ENCOUNTER 2019-03-21 00:50 | Emergency (ER) | payer MEDICARE, BC ==
[~2019-03-21] VITALS: Ht 154.9 cm; Wt 68.2 kg
[~2019-03-21 00:50] MED LIST changes: +AUGMENTIN 875-11 TAB PO
[2019-03-21 00:54] VITALS: Ht 154.9 cm; Wt 68.2 kg
[2019-03-21 01:34] LABS: BASOPHILS 0.3 % (0-2); EOSINOPHILS 2.2 % (0-7); HEMATOCRIT 29.9 % (36.0-48.0); HEMOGLOBIN 9.4 g/dL (12-16); IMMATURE GRANULOCYTES 0.3 % (0-5); LYMPHOCYTES 14.5 % (15-50); MCH 26.1 pg (26.0-34.0); MCHC 31.4 g/dL (31.0-37.0); MCV 83.1 fL (80.0-100.0); MEAN PLATELET VOLUME 9.8 fL (7.4-10.4); NEUTROPHILS 76.7 % (40-80); RDW 14.7 % (11.5-14.5); WBC 7.3 10x3/uL (4.8-10.8)
[2019-03-21 01:40] LABS: PLATELET COUNT 175 10x3/uL (130-400)
[2019-03-21 01:47] LABS: ALBUMIN 2.9 g/dL (3.4-5.0); ANION GAP 11.8 mmol/L (8-16); BILIRUBIN - TOTAL 0.48 mg/dL (0.2-1.3); CALCIUM 8.3 mg/dL (8.5-10.1); CARBON DIOXIDE 26.3 mmol/L (21.0-32.0); CREATININE - SERUM 1.7 mg/dL (0.6-1.3); POTASSIUM - SERUM 3.1 mmol/L (3.5-5.1); PROTEIN - SERUM 6.3 g/dL (6.4-8.2)
[2019-03-21 03:29] VITALS: BP 165/78
== END 2019-03-21 03:29 | disposition home or self-care (01) ==
LOC: D.ER 00:50
PROVIDERS: Family Medicine
DX: E11.649 Type 2 diabetes mellitus with hypoglycemia without coma (principal)

== ENCOUNTER 2019-05-16 18:44 | Inpatient (IN) | payer MEDICARE, BC ==
[~2019-05-16] VITALS: Ht 154.9 cm; Wt 69.4 kg
--- NOTE | ~2019-05-16 | EC ---
PATIENT:KIERRA BLAKE DATE OF SERVICE: 05/16/19 SEX: F MEDICAL RECORD: [id number] DATE OF : 36 LOCATION:D.M2 D.210 AGE OF PATIENT: 78 ADMISSION DATE: 05/16/19 REFERRING PHYSICIAN: INTERPRETING PHYSICIAN: SCARLETT PERDOMO MD ECHOCARDIOGRAM REPORT ECHO CHARGES 4 ECHO COMPLETE Date: 05/17/19 CLINICAL DIAGNOSIS: CHF ECHOCARDIOGRAPHIC MEASUREMENTS (adult normal given) AC root (d.<3.7cm) 3.2 cm LV Septum d (<1.2 cm> 1.2 cm Valve Excursion 1.4 cm LV Septum (systole) 1.5 cm Left Atria (s.<4.0cm> 3.7 cm LVPW d(<1.2cm) 1.2 cm RV (d.<2.3cm) 2.7 cm LVPW (sytole) 1.6 cm LV diastole(<5.6CM) 5.2 cm MV E-F(>70mm/sec) cm LV systole 4.0 cm LVOT Diameter 1.6 cm MV exc.(>10mm) cm Est.ejection fraction (50-75%) % DOPPLER: LVIT cm/sec A 85.0 cm/sec E 93.0 cm/sec LA cm/sec RVSP 52.3 mmHg LVOT 89.0 cm/sec AOP1/2T m/s Asc. Ao 144 cm/sec RVOT 52.0 cm/sec RA cm/sec PA 91.0 cm/sec AV Gradient Peak 8.3 mmHg AV Mean 4.3 mmHg AV Area 1.5 cm MV Gradient Peak 5.1 mmHg MV Mean 1.5 mmHg MV Area cm COMMENTS: Property Investor: 1 GURPREET SANTAMARIAOE Auto Seat Cover Installer: 1 Dr. Perdomo TAPE# PACS Pericardial Effusion N DATE OF SERVICE: 05/17/2019 FINDINGS: 1. Left ventricular chamber size is within normal limits. Left ventricular systolic function is mildly reduced. Overall ejection fraction is 35% to 40%. 2. Left atrium is within normal limits at 3.7 cm. Right atrium and right ventricular chamber sizes are mildly dilated. 3. Valvular structures have normal structure and motion. 4. Doppler interrogation reveals mild aortic insufficiency, severe mitral regurgitation, and severe tricuspid regurgitation. No other valvular ECHOCARDIOGRAM REPORT [id number] LOWE,KIERRA JET insufficiency or stenosis. Pulmonary systolic pressure is elevated, estimated at 52 mmHg. 5. No evidence of pericardial effusion or left ventricular thrombus. TRANSINT:[id number] Voice Confirmation ID: [id number] DOCUMENT ID: [id number] SCARLETT PERDOMO MD CC: [id number] DICTATION DATE: 05/18/19 1028 CENTRIFUGAL CASTING MACHINE TENDER: 05/18/19 1239 ADM IN [facility] [address] [place] [address]
[2019-05-16 20:23] LABS: BASOPHILS 0.3 % (0-2); EOSINOPHILS 3.4 % (0-7); HEMATOCRIT 35.7 % (36.0-48.0); HEMOGLOBIN 11.7 g/dL (12-16); IMMATURE GRANULOCYTES 0.3 % (0-5); LYMPHOCYTES 27.8 % (15-50); MCH 26.3 pg (26.0-34.0); MCHC 32.8 g/dL (31.0-37.0); MCV 80.2 fL (80.0-100.0); MEAN PLATELET VOLUME 10.4 fL (7.4-10.4); MONOCYTES 7.4 % (2-11); NEUTROPHILS 60.8 % (40-80); PLATELET COUNT 189 10x3/uL (130-400); RBC 4.45 10x6/uL (4.00-5.40); RDW 15.7 % (11.5-14.5); WBC 5.8 10x3/uL (4.8-10.8)
[2019-05-16 20:46] LABS: ALBUMIN 3.5 g/dL (3.4-5.0); ANION GAP 10.3 mmol/L (8-16); BILIRUBIN - TOTAL 1.72 mg/dL (0.2-1.3); CALCIUM 9.5 mg/dL (8.5-10.1); CARBON DIOXIDE 28.6 mmol/L (21.0-32.0); CREATININE - SERUM 1.6 mg/dL (0.6-1.3); PROTEIN - SERUM 7.1 g/dL (6.4-8.2)
[2019-05-16 20:48] LABS: POTASSIUM - SERUM 2.9 mmol/L (3.5-5.1)
--- NOTE | 2019-05-16 23:42 | NUR ---
PT ON UNIT VIA WC PROPELLED BY ER STAFF. ADMITTED TO ROOM [address] SARMIENTO SERVICES. PT IS ALERT AND ORIENTED X 3. STATES SHE FEELS FINE, BUT IS COLD. WARM BLANKET PROVIDED. TELEMETRY UNIT CONNECTED TO PT. VSS. LEFT FOREARM SALINE LOCK NOTED. SR'S ARE UP X 2 IN BED. CALL LIGHT AND BEDSIDE TABLE ARE WITHIN EASY REACH.
[2019-05-16 23:45] VITALS: BP 164/91
--- NOTE | 2019-05-17 01:14 | NUR ---
ADMIT ASSESSMENT COMPLETE. PT LAYING IN BED WITH EYES CLOSED. AROUSED TO NURSE COMING IN ROOM. GLASSES NOTED. PT IS AAO, DENIES ANY WEAKNESS STATES OCCASIONAL SOB, PT STATES SHE HAS HAD A COUGH FOR 1 WEEK THAT IS NON PRODUCTIVE. RIGHT LOWER LOBE CRACKLES NOTED. PT LEFT CHEST PACEMAKER NOTED. HEART RATE IRREGULAR. TELEMETRY ON, PT IS CONTROLLED A FIB 67 AT THIS TIME. PEDAL PULSES +2, RIGHT LEG 2 TIMES BIGGER THAN LEFT. PT STATES IT HAS BEEN THAT SIZE FOR 9 YEARS EVERY SINCE SHOULDER SURG. PT DENIES ANY HISTORY OF DVT, PT HAS A LEFT FOREARM 20G THAT IS S/L PT STATES THAT SISTER IN THE EMERGENCY CONTACT MARY CORTEZ IS IN [place] NOW AND WANTS SISTER AMANUEL WATTERS IN CONTACT [phone] WELL SPOUSE SARI BLAKE [phone]
--- NOTE | 2019-05-17 01:28 | NUR ---
SPOKE WITH AMIRAH NURSE IN CHARGE OF PT REGARDING FINDINGS DURING ADMIT ASSESSMENT
[2019-05-17 01:33] VITALS: BP 164/91; BMI 28.9
--- NOTE | 2019-05-17 01:57 | NUR ---
RESTING IN BED WITH EYES CLOSED.
[2019-05-17 04:27] LABS: BASOPHILS 0 % (0-2); EOSINOPHILS 0.1 % (0-7); HEMOGLOBIN 11.5 g/dL (12-16); IMMATURE GRANULOCYTES 0.1 % (0-5); LYMPHOCYTES 9.6 % (15-50); MCH 26.8 pg (26.0-34.0); MCHC 33.8 g/dL (31.0-37.0); MCV 79.3 fL (80.0-100.0); MEAN PLATELET VOLUME 10.2 fL (7.4-10.4); MONOCYTES 0.9 % (2-11); NEUTROPHILS 89.3 % (40-80); PLATELET COUNT 168 10x3/uL (130-400); RBC 4.29 10x6/uL (4.00-5.40); RDW 15.4 % (11.5-14.5); WBC 6.9 10x3/uL (4.8-10.8)
[2019-05-17 04:30] VITALS: BP 162/76
[2019-05-17 04:52] LABS: ALBUMIN 3.3 g/dL (3.4-5.0); ANION GAP 11.6 mmol/L (8-16); BILIRUBIN - TOTAL 1.99 mg/dL (0.2-1.3); CALCIUM 9.3 mg/dL (8.5-10.1); CARBON DIOXIDE 27.8 mmol/L (21.0-32.0); CREATININE - SERUM 1.6 mg/dL (0.6-1.3); PROTEIN - SERUM 6.7 g/dL (6.4-8.2)
[2019-05-17 04:54] LABS: POTASSIUM - SERUM 3.4 mmol/L (3.5-5.1)
--- NOTE | 2019-05-17 07:23 | NUR ---
PT ASLEEP LYING ON LEFT SIDE. BREATHS EVEN/REGULAR/UNLABORED, NO S/S OF DISTRESS AT THIS TIME. CDID NTO WAKE I ENTERED DID NOT FURTHER DISTURB AT THIS TIME. CL IN REACH, SRX2.
[2019-05-17 08:06] VITALS: BP 153/69
[2019-05-17 10:04] VITALS: BMI 28.9
--- NOTE | 2019-05-17 10:11 | NUR ---
PT AWAKE AND ORIENTED. HAS NO COMPLAINTS, STATES SHE FEELS GREAT AND WANTS TO GET OUT OF HERE TODAY. WANTS TO KNOW WHEN SHE CAN LEAVE, I EXPLAINED I HAVE NO IDEA AT THIS TIME, WE'LL HAVE TO WAIT FOR THE TO ROUND.
[2019-05-17 12:26] VITALS: BP 147/74
[2019-05-17 13:05] VITALS: Ht 154.9 cm; Wt 69.4 kg
[2019-05-17 13:45] LABS: % SATURATION 11 % (15-55); IRON 40 ug/dl (35-150); TOTAL IRON BIND CAPACITY 349 ug/dl (260-445); UNSAT IRON BIND CAPACITY 309 ug/dl (150-375)
--- NOTE | 2019-05-17 15:27 | NUR ---
DAUGHTER CALLED WARNING US THAT WHEN HER MOTHER TAKES INSULIN IN THE HOSPITAL IT GETS DIFFICULT TO CONTROL THEM AT HOME. SHE IS ASKING ABOUT HOW TO BETTER CONTROL THE SUGAR LEVELS. ASNWERED ALL QUESTIONS TO THE BEST OF MY ABILITY.
[2019-05-17 15:59] VITALS: BP 144/68
--- NOTE | 2019-05-17 16:33 | NUR ---
PT AWAKE AND OREINTED, HAS BEEN C/O WANTING TO GO HOME. PREFORMED PT EDUCATION ON STERIODS AND THE EFFECT ON DIABETICS BLOOD SUGAR. CL IN REACH, SRX2.
[2019-05-17 20:00] VITALS: BP 122/51
[2019-05-18] VITALS: BP 117/53
--- NOTE | 2019-05-18 01:53 | NUR ---
ADMISSION ASSESSMENT COMPLETED, PT RESTING. PLAN OF CARE INITIATED.
[2019-05-18 04:30] VITALS: BP 126/68
[2019-05-18 05:12] LABS: BASOPHILS 0 % (0-2); EOSINOPHILS 0.1 % (0-7); HEMATOCRIT 33.5 % (36.0-48.0); HEMOGLOBIN 11.1 g/dL (12-16); IMMATURE GRANULOCYTES 0.2 % (0-5); LYMPHOCYTES 13.2 % (15-50); MCHC 33.1 g/dL (31.0-37.0); MCV 78.5 fL (80.0-100.0); MEAN PLATELET VOLUME 10.2 fL (7.4-10.4); MONOCYTES 7.2 % (2-11); NEUTROPHILS 79.3 % (40-80); RBC 4.27 10x6/uL (4.00-5.40); RDW 15.3 % (11.5-14.5)
[2019-05-18 05:18] LABS: PLATELET COUNT 203 10x3/uL (130-400)
[2019-05-18 05:25] LABS: ANION GAP 8.7 mmol/L (8-16); CALCIUM 8.8 mg/dL (8.5-10.1); CREATININE - SERUM 1.8 mg/dL (0.6-1.3)
[2019-05-18 05:36] LABS: POTASSIUM - SERUM 2.7 mmol/L (3.5-5.1)
--- NOTE | 2019-05-18 05:41 | NUR ---
2.7 SERUM POTASSIUM TREATED ORDERED PER ELECTROLYTE REPLACEMENT PROTOCOL.
--- NOTE | 2019-05-18 07:11 | NUR ---
PT ASLEEP ON RIGHT SIDE, BREATHS EVEN/REGULAR/UNLABORED, NO S/S OF DISTRESS. DID NOT FURTHER DISTURB AT THIS TIME. CL IN REACH, SRX2.
[2019-05-18 09:30] VITALS: BP 130/76
--- NOTE | 2019-05-18 12:40 | NUR ---
I have reviewed this patient and I concur with the Shift Assessment completed by the Licensed Practical Nurse today this shift.
[2019-05-18 13:42] LABS: APPEARANCE CLEAR (CLEAR); BILIRUBIN NEGATIVE (NEGATIVE); COLOR YELLOW (YELLOW); KETONE NEGATIVE (NEGATIVE); NITRITE NEGATIVE (NEGATIVE); PROTEIN NEGATIVE (NEGATIVE); SPECIFIC GRAVITY 1.005 (1.005-1.020); UROBILINOGEN NORMAL (NORMAL)
[2019-05-18 13:43] LABS: GLUCOSE 1000 mg/dL (NEGATIVE)
[2019-05-18] MEDS ORDERED: K-DUR20 MEQ PO (13:54)
[2019-05-18] MEDS ORDERED: FUROSEMIDE20 MG PO (13:54)
--- NOTE | 2019-05-18 15:45 | NUR ---
CALLED DR HOROWITZ TO CLARIFY IF PT TO BE DISCHARGED ON LASIX, WELL HER NORMAL HOME MEDICATION BUMEX. PER DR. HOROWITZ WILL CANCEL LAXIX.
--- NOTE | 2019-05-18 16:27 | NUR ---
PT ESCORTED OUT VIA WHEEL CHAIR TO POV.
--- NOTE | 2019-05-19 08:24 | MORECARE ---
CASE MANAGEMENT DISCHARGE SUMMARY PATIENT: KIERRA BLAKE JET UNIT: [id number] ADM DATE: 05/16/19 AGE: 78 : 38 SEX: F ROOM/BED: D.2102 AUTHOR: CHEL BATISTA PHYSICIAN: REFERRING PHYSICIAN: RESHMA HOROWITZ MD DATE OF SERVICE: 05/19/19 Discharge Plan Patient Name: KIERRA BLAKE Facility: [facility]:[place] : 1940 Planned Disposition: Home Anticipated Discharge Date: 05/18/19 Discharge Date: 05/18/2019 Expected LOS: 2 Initial Reviewer: [email or web address] Initial Review Date: 05/19/2019 Generated: 05/19/19 9:24 am Patient Name: KIERRA BLAKE Page 50285 at 0824 All edits/amendments must be made on the electronic document DICTATION DATE: 05/19/19823 UNIVERSITY TUTOR: TOMAS 05/19/19823 RPT#: [id number] DC DATE:05/18/19 STATUS: DIS IN [facility] [address] [place] [address] END OF REPORT
== END 2019-05-18 16:31 | disposition home or self-care (01) | DRG 292 ==
LOC: D.ER 18:44 → D.M2 22:15
PROVIDERS: Family Medicine; ADMIT Internal Medicine Nephrology; ATTEND Internal Medicine Nephrology
DX: I11.0 Hypertensive heart disease with heart failure (principal); N17.9 Acute kidney failure, unspecified; I50.23 Acute on chronic systolic (congestive) heart failure; D64.9 Anemia, unspecified; E87.6 Hypokalemia; E78.5 Hyperlipidemia, unspecified; E11.9 Type 2 diabetes mellitus without complications; I25.10 Atherosclerotic heart disease of native coronary artery without angina pectoris; Z95.0 Presence of cardiac pacemaker

== ENCOUNTER 2019-05-28 09:49 | Inpatient (IN) | payer MEDICARE, BC ==
[~2019-05-28] VITALS: Ht 154.9 cm; Wt 65.3 kg
[~2019-05-28 09:49] MED LIST changes: +FUROSEMIDE20 MG PO
[2019-05-28 10:29] LABS: BASOPHILS 0.1 % (0-2); EOSINOPHILS 0.4 % (0-7); HEMATOCRIT 41.1 % (36.0-48.0); HEMOGLOBIN 14.9 g/dL (12-16); IMMATURE GRANULOCYTES 0.2 % (0-5); LYMPHOCYTES 16.1 % (15-50); MCH 27.3 pg (26.0-34.0); MCHC 36.3 g/dL (31.0-37.0); MCV 75.3 fL (80.0-100.0); MONOCYTES 5.8 % (2-11); NEUTROPHILS 77.4 % (40-80); PLATELET COUNT 204 10x3/uL (130-400); RBC 5.46 10x6/uL (4.00-5.40); RDW 14.3 % (11.5-14.5); WBC 9.7 10x3/uL (4.8-10.8)
[2019-05-28 10:46] LABS: KETONE - SERUM NEGATIVE (NEGATIVE)
[2019-05-28 10:48] LABS: ALBUMIN 3.9 g/dL (3.4-5.0); ALKALINE PHOSPHATASE 137 U/L (46-116); ALT (SGPT) 25 U/L (10-68); BILIRUBIN - TOTAL 1.36 mg/dL (0.2-1.3); CALCIUM 9.6 mg/dL (8.5-10.1); CARBON DIOXIDE 34.9 mmol/L (21.0-32.0); CREATININE - SERUM 3.2 mg/dL (0.6-1.3); MAGNESIUM - SERUM 2.2 mg/dL (1.8-2.4); PROTEIN - SERUM 7.8 g/dL (6.4-8.2); SODIUM 127 mmol/L (136-145); UREA NITROGEN 71 mg/dL (7-18); eGFR NON AFRICAN AMERICAN 15 mL/min (90-120)
--- NOTE | 2019-05-28 10:50 | NUR ---
lab called with critical labs on pt. glucose 522, potassium 2.2, and choloride 82. edp notified.
[2019-05-28 10:51] LABS: CALC OSMOLALITY 299 mosm/kg (275-300)
[2019-05-28 10:53] LABS: CHLORIDE - SERUM 82 mmol/L (98-107); GLUCOSE 522 mg/dL (74-106); POTASSIUM - SERUM 2.2 mmol/L (3.5-5.1)
[2019-05-28 11:40] VITALS: BP 99/48
[2019-05-28 11:41] LABS: APPEARANCE HAZY (CLEAR); COLOR STRAW (YELLOW); SPECIFIC GRAVITY 1.005 (1.005-1.020)
[2019-05-28 11:42] LABS: BILIRUBIN NEGATIVE (NEGATIVE); KETONE NEGATIVE (NEGATIVE); NITRITE NEGATIVE (NEGATIVE); PROTEIN NEGATIVE (NEGATIVE); UROBILINOGEN NORMAL (NORMAL)
[2019-05-28 11:45] LABS: GLUCOSE 1000 mg/dL (NEGATIVE)
--- NOTE | 2019-05-28 12:08 | NUR ---
PT IV TO L AC INFILTRATED WHILE PT RECIEVING NS AND POTASSIUM. EDP AND CHARGE NURSE NOTIFIED. IV DISCONINUED WITH CATHETER INTACT, WARM COMPRESS APPLIED.
[2019-05-28 13:06] VITALS: BP 122/54
--- NOTE | 2019-05-28 13:07 | NUR ---
BS 496. EDP NOTIFIED.
--- NOTE | 2019-05-28 15:31 | NUR ---
attempted to call report at 1530, nurse states "alfredo" will be taking that pt and she stepped out. states nurse will call back.
[2019-05-28 19:30] VITALS: BP 112/76; BMI 27.2
[2019-05-28 20:00] VITALS: BP 132/65
[2019-05-28 20:19] LABS: CALCIUM 9.4 mg/dL (8.5-10.1); CREATININE - SERUM 3.2 mg/dL (0.6-1.3)
--- NOTE | 2019-05-28 20:19 | NUR ---
PT IN BED RESTING QUIETLY. TWO MALE VISITORS AT BEDSIDE. PT DENIES NEEDS AT THIS TIME.
[2019-05-28 20:22] LABS: CARBON DIOXIDE 13.6 mmol/L (21.0-32.0)
[2019-05-28 20:24] LABS: POTASSIUM - SERUM 2.6 mmol/L (3.5-5.1)
[2019-05-29] VITALS: BP 125/58
[2019-05-29 01:40] LABS: CALCIUM 9.3 mg/dL (8.5-10.1); CREATININE - SERUM 2.8 mg/dL (0.6-1.3)
[2019-05-29 01:41] LABS: ANION GAP 9.1 mmol/L (8-16); CARBON DIOXIDE 34.2 mmol/L (21.0-32.0); POTASSIUM - SERUM 2.3 mmol/L (3.5-5.1)
[2019-05-29 04:00] VITALS: BP 152/59
[2019-05-29 06:11] LABS: BASOPHILS 0.3 % (0-2); EOSINOPHILS 0.6 % (0-7); HEMATOCRIT 42.6 % (36.0-48.0); HEMOGLOBIN 14.7 g/dL (12-16); IMMATURE GRANULOCYTES 0.3 % (0-5); LYMPHOCYTES 30.5 % (15-50); MCH 26.7 pg (26.0-34.0); MCHC 34.5 g/dL (31.0-37.0); MEAN PLATELET VOLUME 10.3 fL (7.4-10.4); MONOCYTES 7.9 % (2-11); NEUTROPHILS 60.4 % (40-80); PLATELET COUNT 194 10x3/uL (130-400); RBC 5.51 10x6/uL (4.00-5.40); RDW 14.7 % (11.5-14.5)
[2019-05-29 06:28] LABS: MCV 77.3 fL (80.0-100.0)
--- NOTE | 2019-05-29 07:10 | NUR ---
REPORT RECEIVED FROM WAITER/WAITRESS FORMAL AND PATIENT CARE ASSUMED. PATIENT LAYING IN BED ON BACK WITH EYES CLOSED AND BREATHING EVENLY. PATIENT AROUSES EASILY TO VOICE. VSS. PATIENT DENIES ANY NEEDS OR PAIN. WILL CONTINUE WITH PLAN OF CARE. SR UP X 2 BED IN LOW POSTION AND CALL LIGHT IN REACH.
[2019-05-29 07:32] LABS: BILIRUBIN - DIRECT 0.11 mg/dL (0.00-0.30); CALCIUM 9.4 mg/dL (8.5-10.1); CARBON DIOXIDE 29.9 mmol/L (21.0-32.0); CHLORIDE - SERUM 91 mmol/L (98-107); CREATININE - SERUM 2.6 mg/dL (0.6-1.3); FERRITIN 382 ng/mL (3-244); LDH 424 U/L (81-234); MAGNESIUM - SERUM 2.2 mg/dL (1.8-2.4); PHOSPHOROUS 3.4 mg/dL (2.5-4.9); SODIUM 131 mmol/L (136-145); UREA NITROGEN 68 mg/dL (7-18); eGFR NON AFRICAN AMERICAN 19 mL/min (90-120)
[2019-05-29 07:55] LABS: CALC OSMOLALITY 284 mosm/kg (275-300); GLUCOSE 130 mg/dL (74-106)
[2019-05-29 07:56] LABS: POTASSIUM - SERUM 2.9 mmol/L (3.5-5.1)
[2019-05-29 08:00] VITALS: BP 130/66
--- NOTE | 2019-05-29 08:30 | NUR ---
BS 147. NO TMT . PATIENT IS STABLE AND WATCHING TV.
[2019-05-29 12:12] VITALS: BP 132/76
--- NOTE | 2019-05-29 12:22 | NUR ---
PATIENT SITTING UP IN BEED EATING LUNCH. PATIENT DENIES ANY NEED OR PAIN. PATIENT IS STABLE AND VSS. WILL CONTINUE TO MONITOR. SR UP X 2 BED IN LOW POSITION AND CALL LIGNT IN REACH.
--- NOTE | 2019-05-29 12:45 | NUR ---
PATIENT BLOOD SUGAR 305. SPOKE WITH PATIENT REGARDING PATIENT KNOWLEDGE OF HOW TO CHECK BLOOD SUGAR FINGER STICKS AND LEARNING HOW TO DO INSULIN DRAWS AND INJECTIONS. PATIENT STATED THAT SHE KNOWS HOW TO CHECK HER BLOOD SUGAR. SHE STATES SHE CHECKS HER BS AT HOME BEFORE SHE EATS BREAKFAST AND BEFORE SHE EATS SUPPER. ATTEMPTED TO TEACH THE USE OF INSULIN. PATIENT REFUSED. SHE STATES THAT SHE IS ON PILLS AT HOME AND SHE DOESNT WANT TO TAKE INSULIN. SPENT SEVERAL MINUTES EDUCATING PATIENT ON DANGERS AND EFFECTS OF HYPERGLYCEMIA. PATIENT STATES THAT SHE IS READY TO GO [facility] AND STILL REFUSES TO LEARN INSULIN FOR HOME USE. WILL CONTINUE TO URGE PATIENT ON THERAPY.
[2019-05-29 13:40] VITALS: Ht 154.9 cm; Wt 65.3 kg
[2019-05-29 17:04] VITALS: BP 136/64
--- NOTE | 2019-05-29 17:11 | MORECARE ---
CASE MANAGEMENT DISCHARGE SUMMARY PATIENT: KIERRA BLAKE JET UNIT: [id number] ADM DATE: 05/28/19 AGE: 78 : 38 SEX: F ROOM/BED: D.1207 AUTHOR: CHEL BATISTA PHYSICIAN: REFERRING PHYSICIAN: RESHMA HOROWITZ MD DATE OF SERVICE: 05/29/19 Discharge Plan Patient Name: KEIRRA BLAKE [facility] [facility] 1940 Planned Disposition: Home with Home Health Anticipated Discharge Date: Discharge Date: Expected LOS: Initial Reviewer: [email or web address] Initial Review Date: 05/29/2019 Generated: 05/29/19 6:10 pm DCPIA - Discharge Planning Initial Assessment Updated by [email or web address]: Mynor Miller on 05/29/19 5:03 pm * Is the patient Alert and Oriented? Yes * How many steps to enter\exit or inside your home? * PCP DR. QUINN IN [place] * Pharmacy [facility] IN [place] * Preadmission Environment Home with Family * ADLs Independent * Equipment Glucometer * Other Equipment NO MEDICAL EQUIPMENT PROVIDER PREFERENCE * List name and contact numbers for known caregivers / representatives who currently or will assist patient after discharge: SARI CARREON, SPOUSE, * Verbal permission to speak to the caregivers and representatives has been obtained from the patient. N/A * Community resources currently utilized None * Please name any agencies selected above. NONE * Additional services required to return to the preadmission environment? No * Can the patient safely return to the preadmission environment? Yes * Has this patient been hospitalized within the prior 30 days at any hospital? Yes Patient Name: KIERRA BLAKE Page 83455 at 1711 All edits/amendments must be made on the electronic document DICTATION DATE: 05/29/191709 DESIGN PROJECT MANAGER: TOMAS 05/29/191709 RPT#: [id number] DC DATE: STATUS: ADM IN [facility] [address] [place] [address] END OF REPORT
--- NOTE | 2019-05-29 17:20 | MORECARE ---
CASE MANAGEMENT DISCHARGE SUMMARY PATIENT: KIERRA BLKAE UNIT: [id number] ADM DATE: 05/28/19 AGE: 78 : 38 SEX: F ROOM/BED: D.1207 AUTHOR: LESTER,DOC PHYSICIAN: REFERRING PHYSICIAN: RESHMA HOROWITZ MD DATE OF SERVICE: 05/29/19 Discharge Plan Patient Name: KIERRA BLAKE Facility: [facility]:[place] : 1940 Planned Disposition: Home with Home Health Anticipated Discharge Date: Discharge Date: Expected LOS: Initial Reviewer: [email or web address] Initial Review Date: 05/29/2019 Generated: 05/29/19 6:20 pm Comments DCP- Discharge Planning Updated by [email or web address]: Mynor Miller on 05/29/19 4:[address] Patient Name: KIERRA BLAKE Admission Status: ER Accout number: [id number] Admission Date: 05-28-2019 : 1940 Admission Diagnosis: Attending: RESHMA HOROWITZ Current LOS: 1 Anticipated DC Date: Planned Disposition: Home Primary Insurance: MEDICARE A & B Discharge Planning Comments: CM MET WITH PT IN ROOM TO DISCUSS DISCHARGE PLANNING AND NEEDS. PT REPORTS LIVING AT HOME INDEPENDENTLY WITH HER SPOUSE AND NEICE. PT HAS GLUCOMETER AND NO MEDICAL EQUIPMENT PROVIDER PREFERNCE. PT HAS NO OUTSIDE SERVICES ASSISTING IN THE HOME. CM DISCUSSED AVAILABILITY OF HOME HEALTH, REHAB SERVICES AND MEDICAL EQUIPMENT. PT IS THINKING OF HAVING HOME HEALTH TO ASSIST WITH DIABETES THAT HAS BEEN CAUSING HER PROBLEMS. CM PROVIDED PT WITH HOME HEALTH PROVIDER LISTING, PT REPORTS SHE WILL "THINK ABOUT IT". PT REPORTS HER FAMILY WILL PICK HER UP FOR DISCHARGE HOME. PT IS PLANNING TO RETURN HOME WITH FAMILY, IS CONSIDERING HOME HEALTH SERVICES FOR DISCHARGE HOME. CM TO ARRANGE HOME HEALTH IF PT DECIDES SHE WANTS IT AND WITH PHYSICIAN AGREEMENT AND ORDERS. Commercial Fisherman: Mynor Miller DCPIA - Discharge Planning Initial Assessment Updated by [email or web address]: Mynor Miller on 05/29/19 5:03 pm * Is the patient Alert and Oriented? Yes * How many steps to enter\\exit or inside your home? * PCP DR. QUINN IN [place] * Pharmacy [facility] IN [place] * Preadmission Environment Home with Family * ADLs Independent * Equipment Glucometer * Other Equipment NO MEDICAL EQUIPMENT PROVIDER PREFERENCE * List name and contact numbers for known caregivers / representatives who currently or will assist patient after discharge: SARI CARREON, SPOUSE, * Verbal permission to speak to the caregivers and representatives has been obtained from the patient. N/A * Community resources currently utilized None * Please name any agencies selected above. NONE * Additional services required to return to the preadmission environment? No * Can the patient safely return to the preadmission environment? Yes * Has this patient been hospitalized within the prior 30 days at any hospital? Yes Last DP export: 05/29/19 4:11 pm Patient Name: KIERRA BLAKE Page 06114 at 1720 All edits/amendments must be made on the electronic document DICTATION DATE: 05/29/191719 VP LAB: TOMAS 05/29/191719 RPT#: [id number] DC DATE: STATUS: ADM IN [facility] [address] [place] [address] END OF REPORT
--- NOTE | 2019-05-29 20:00 | NUR ---
LYING IN BED. ALERT AND ORIENTED X4. RESP EVEN AND NONLABORED. NONPROD COUGH NOTED AT TIMES. TELEMETRY SHOWS PACED AT 69. 2+ EDEMA NOTED TO RLE. PEDAL PULSES WEAK BILAT. AMBULATORY. DENIES PAIN. NS @ 75 MLHR INFUSING IN RT WRIST WITHOUT DIFF. SR ELEVATED X2. CL IN REACH.
[2019-05-29 20:13] VITALS: BP 154/71
[2019-05-30 00:17] VITALS: BP 120/51
--- NOTE | 2019-05-30 00:20 | NUR ---
PT GIVEN BEDTIME SNACK OF KIESHA CRACKERS AND DIET SODA. CL IN REACH. NO DISTRESS.
--- NOTE | 2019-05-30 04:25 | NUR ---
FSBS 66. SLIGHTLY DROWSY. SAT UP IN BED AND DRANK OJ AND ATE SOME KIESHA CRACKERS. WILL RECHECK IN 30 MINUTES. NO DISTRESS.
[2019-05-30 04:36] VITALS: BP 135/50
[2019-05-30 07:21] LABS: ANION GAP 11.9 mmol/L (8-16); CALCIUM 8.9 mg/dL (8.5-10.1)
[2019-05-30 07:22] LABS: BASOPHILS 0.3 % (0-2); EOSINOPHILS 2.1 % (0-7); HEMATOCRIT 40.9 % (36.0-48.0); HEMOGLOBIN 13.8 g/dL (12-16); IMMATURE GRANULOCYTES 0.3 % (0-5); LYMPHOCYTES 23.1 % (15-50); MCH 26.5 pg (26.0-34.0); MCHC 33.7 g/dL (31.0-37.0); MCV 78.7 fL (80.0-100.0); MEAN PLATELET VOLUME 10.2 fL (7.4-10.4); MONOCYTES 6.2 % (2-11); PLATELET COUNT 175 10x3/uL (130-400); RDW 15.1 % (11.5-14.5); WBC 6.1 10x3/uL (4.8-10.8)
[2019-05-30 07:24] LABS: POTASSIUM - SERUM 2.9 mmol/L (3.5-5.1)
[2019-05-30 07:55] VITALS: BP 157/72
--- NOTE | 2019-05-30 11:31 | NUR ---
PT RESTING IN BED. NO SIGNS OF DISTRESS. IV TO RIGHT WRIST PATENT NO REDNESS OR TENDERNESS. ON TELEMETRY 70 PACED. RIGHT LEG SWOLLEN. DENIES ANY FURTHER NEED AT THIS TIME. CALL LIGHT IN REACH. BED LOW POSITION. NO FAMILY AT BEDSIDE AT THIS TIME.
--- NOTE | 2019-05-30 11:37 | MORECARE ---
CASE MANAGEMENT DISCHARGE SUMMARY PATIENT: KIERRA BLAKE UNIT: [id number] ADM DATE: 05/28/19 AGE: 78 : 38 SEX: F ROOM/BED: D.1207 AUTHOR: LESTER,DOC PHYSICIAN: REFERRING PHYSICIAN: RESHMA HOROWITZ MD DATE OF SERVICE: 05/30/19 Discharge Plan Patient Name: KIERRA BLAKE Facility: [facility]:[place] : 1940 Planned Disposition: Home Anticipated Discharge Date: 05/30/19 Discharge Date: Expected LOS: 2 Initial Reviewer: [email or web address] Initial Review Date: 05/29/2019 Generated: 05/30/19 12:37 pm DCP- Discharge Planning Updated by [email or web address]: Mynor Miller on 05/29/19 4:[address] Patient Name: KIERRA BLAKE Admission Status: ER Accout number: [id number] Admission Date: 05-28-2019 : 1940 Admission Diagnosis: Attending: RESHMA HOROWITZ Current LOS: 1 Anticipated DC Date: Planned Disposition: Home Primary Insurance: MEDICARE A & B Discharge Planning Comments: CM MET WITH PT IN ROOM TO DISCUSS DISCHARGE PLANNING AND NEEDS. PT REPORTS LIVING AT HOME INDEPENDENTLY WITH HER SPOUSE AND NEICE. PT HAS GLUCOMETER AND NO MEDICAL EQUIPMENT PROVIDER PREFERNCE. PT HAS NO OUTSIDE SERVICES ASSISTING IN THE HOME. CM DISCUSSED AVAILABILITY OF HOME HEALTH, REHAB SERVICES AND MEDICAL EQUIPMENT. PT IS THINKING OF HAVING HOME HEALTH TO ASSIST WITH DIABETES THAT HAS BEEN CAUSING HER PROBLEMS. CM PROVIDED PT WITH HOME HEALTH PROVIDER LISTING, PT REPORTS SHE WILL "THINK ABOUT IT". PT REPORTS HER FAMILY WILL PICK HER UP FOR DISCHARGE HOME. PT IS PLANNING TO RETURN HOME WITH FAMILY, IS CONSIDERING HOME HEALTH SERVICES FOR DISCHARGE HOME. CM TO ARRANGE HOME HEALTH IF PT DECIDES SHE WANTS IT AND WITH PHYSICIAN AGREEMENT AND ORDERS. Arts Administrator: Mynor Miller DCPIA - Discharge Planning Initial Assessment Updated by [id number]: Mynor Miller on 05/29/19 5:03 pm * Is the patient Alert and Oriented? Yes * How many steps to enter\\exit or inside your home? * PCP DR. QUINN IN [place] * Pharmacy [facility] IN [place] * Preadmission Environment Home with Family * ADLs Independent * Equipment Glucometer * Other Equipment NO MEDICAL EQUIPMENT PROVIDER PREFERENCE * List name and contact numbers for known caregivers / representatives who currently or will assist patient after discharge: SARI CARREON, SPOUSE, * Verbal permission to speak to the caregivers and representatives has been obtained from the patient. N/A * Community resources currently utilized None * Please name any agencies selected above. NONE * Additional services required to return to the preadmission environment? No * Can the patient safely return to the preadmission environment? Yes * Has this patient been hospitalized within the prior 30 days at any hospital? Yes Coverage Notice Reviewer: [id number] Shae Miller Notice Issued Date-Time: 05/30/2019 10:45 Notice Type: IM Discharge Notice Notice Delivered To: Patient Relationship to Patient: Environmental Planner Name: Delivery Method: HAND - Hand Delivered Maris Days: Prior Verbal Notification: Recipient Understood Notice: Yes Recipient Signature: Yes Med Rec Note Co-signed by Attending: Coverage Notice Comment: Last DP export: 05/29/19 4:20 pm Patient Name: KIERRA BLAKE Page 26898 at 1137 All edits/amendments must be made on the electronic document DICTATION DATE: 05/30/19 1137 DIRECTOR SMB SALES: TOMAS 05/30/19 1137 RPT#: [id number] DC DATE: STATUS: ADM IN [facility] [address] [place] [address] END OF REPORT
--- NOTE | 2019-05-30 11:47 | MORECARE ---
CASE MANAGEMENT DISCHARGE SUMMARY PATIENT: KIERRA BLAKE UNIT: [id number] ADM DATE: 05/28/19 AGE: 78 : 38 SEX: F ROOM/BED: D.1207 AUTHOR: LESTER,DOC PHYSICIAN: REFERRING PHYSICIAN: RESHMA HOROWITZ MD DATE OF SERVICE: 05/30/19 Discharge Plan Patient Name: KIERRA BLAKE Facility: [facility]:[place] : 1940 Planned Disposition: Home Anticipated Discharge Date: 05/30/19 Discharge Date: Expected LOS: 2 Initial Reviewer: [id number] Initial Review Date: 05/29/2019 Generated: 05/30/19 12:47 pm Comments DCP- Discharge Planning Updated by [email or web address]: Mynor Miller on 05/30/19 10:[address] Patient Name: KIERRA BLAKE Admission Status: ER Accout number: [id number] Admission Date: 05-28-2019 : 1940 Admission Diagnosis: Attending: RESHMA HOROWITZ Current LOS: 2 Anticipated DC Date: 05-30-2019 Planned Disposition: Home Primary Insurance: MEDICARE A & B Discharge Planning Comments: CM RECEIVED MESSAGE REQUESTING CM CALL PT'S DAUGHTER, JENNA, . CM MET WITH PT IN ROOM TO DISCUSS DISCHARGE NEEDS AND PLANNING. CM DISCUSSED AVAILABILITY OF HOME HEALTH, REHAB SERVICES AND MEDICAL EQUIPMENT. PT DENIES DISCHARGE NEEDS AND DOES NOT WANT HOME HEALTH. PT REPORTS SHE WILL ACCEPT DIABETIC TEACHING AND HAS HER SPOUSE AND NIECE AT HOME TO ASSIST IF NEEDED. SPOUSE TO TRANSPORT HOME AT DISCHARGE. IMPORTANT MESSAGE FROM MEDICARE PROVIDED AND EXPLAINED. PT REPORTS IT IS OK TO CALL HER DAUGHTER JENNA AND DISCUSS ANYTHING REGARDING HER CARE AND TREATMENT. CM CALLED JENNA, PT'S DAUGHTER, . JOANNE UPSET STATING THAT CM NOTED THAT PT IS REFUSING INSULIN AND DIABETIC TEACHING. CM ASSURED JENNA THAT CM DID NOT NOTE THAT. JENNA INSTISTED THAT THE NIGHT NURSE LAST NIGHT READ CM NOTE TO HER THAT INDICATED REFUSAL BY PATIENT. CM REVIEWED CHART, LOCATED NOTE BY BEDSIDE NURSE GRACIE OF PT'S REFUSAL. CM NOTIIFED JENNA THAT IT WAS NOT CM, IT WAS THE BEDSIDE NURSE YESTERDAY THAT NOTED PT'S REFUSAL. JENNA REQUESTED TO SPEAK TO THE [facility] FACTOR . CM NOTIFIED WORKS MANAGER NURSE REA. PT REFUSES HOME HEALTH. PT PLANS TO DISCHARGE HOME WITH SPOUSE AND NIECE. PT'S SPOUSE TO TRANSPORT HOME AT DISCHARGE. CM TO FOLLOW AND ASSIST IF NEEDED. Blood Bank Specialist: Mynor Miller DCP- Discharge Planning Updated by [id number]: Mynor Miller on 05/29/19 4:[address] Patient Name: KIERRA BLAKE Admission Status: ER Accout number: [id number] Admission Date: 05-28-2019 : 1940 Admission Diagnosis: Attending: RESHMA HOROWITZ Current LOS: 1 Anticipated DC Date: Planned Disposition: Home Primary Insurance: MEDICARE A & B Discharge Planning Comments: CM MET WITH PT IN ROOM TO DISCUSS DISCHARGE PLANNING AND NEEDS. PT REPORTS LIVING AT HOME INDEPENDENTLY WITH HER SPOUSE AND NEICE. PT HAS GLUCOMETER AND NO MEDICAL EQUIPMENT PROVIDER PREFERNCE. PT HAS NO OUTSIDE SERVICES ASSISTING IN THE HOME. CM DISCUSSED AVAILABILITY OF HOME HEALTH, REHAB SERVICES AND MEDICAL EQUIPMENT. PT IS THINKING OF HAVING HOME HEALTH TO ASSIST WITH DIABETES THAT HAS BEEN CAUSING HER PROBLEMS. CM PROVIDED PT WITH HOME HEALTH PROVIDER LISTING, PT REPORTS SHE WILL "THINK ABOUT IT". PT REPORTS HER FAMILY WILL PICK HER UP FOR DISCHARGE HOME. PT IS PLANNING TO RETURN HOME WITH FAMILY, IS CONSIDERING HOME HEALTH SERVICES FOR DISCHARGE HOME. CM TO ARRANGE HOME HEALTH IF PT DECIDES SHE WANTS IT AND WITH PHYSICIAN AGREEMENT AND ORDERS. Blood Bank Specialist: Mynor Miller DCPIA - Discharge Planning Initial Assessment Updated by [id number]: Mynor Miller on 05/29/19 5:03 pm * Is the patient Alert and Oriented? Yes * How many steps to enter\\exit or inside your home? * PCP DR. QUINN IN [place] * Pharmacy [facility] IN [place] * Preadmission Environment Home with Family * ADLs Independent * Equipment Glucometer * Other Equipment NO MEDICAL EQUIPMENT PROVIDER PREFERENCE * List name and contact numbers for known caregivers / representatives who currently or will assist patient after discharge: SARI CARREON, SPOUSE, * Verbal permission to speak to the caregivers and representatives has been obtained from the patient. N/A * Community resources currently utilized None * Please name any agencies selected above. NONE * Additional services required to return to the preadmission environment? No * Can the patient safely return to the preadmission environment? Yes * Has this patient been hospitalized within the prior 30 days at any hospital? Yes Coverage Notice Reviewer: [id number] Shae Miller Notice Issued Date-Time: 05/30/2019 10:45 Notice Type: IM Discharge Notice Notice Delivered To: Patient Relationship to Patient: Senior Windows Administrator Name: Delivery Method: HAND - Hand Delivered Maris Days: Prior Verbal Notification: Recipient Understood Notice: Yes Recipient Signature: Yes Med Rec Note Co-signed by Attending: Coverage Notice Comment: Last DP export: 05/30/19 10:38 am Patient Name: KIERRA BLAKE Page 99603 at 1147 All edits/amendments must be made on the electronic document DICTATION DATE: 05/30/19 1147 FORMS ANALYSIS MANAGER: TOMAS 05/30/19 1147 RPT#: [id number] DC DATE: STATUS: ADM IN [facility] [address] [place] [address] END OF REPORT
--- NOTE | 2019-05-30 19:33 | NUR ---
RECIEVED UP IN BED WITH EYES OPEN AND TV ON. ALERT AND ORIENTED X4. EDUCATED ON DIET RESTRICTION. INSULIN AND COMPLICATIONS OF UNCONTROLLED DM. ALSO, GAVE INFORMATION ON FREE GLUCOMETER AND SUPPLIES VIA INTERNET. GAVE VERBAL UNDERSTANDING. IV TO RIGHT WRIST WITH NS AT 75CC HR. NO EDNESS OR SWELLING TO SITE. DSG INTACT. DENIES ANY NEEDS AT THIS TIME.
[2019-05-30 20:00] VITALS: BP 130/55
[2019-05-31 06:43] LABS: BASOPHILS 0.6 % (0-2); EOSINOPHILS 4.8 % (0-7); HEMATOCRIT 36.3 % (36.0-48.0); IMMATURE GRANULOCYTES 0.2 % (0-5); LYMPHOCYTES 29.3 % (15-50); MCH 26.3 pg (26.0-34.0); MCHC 33.1 g/dL (31.0-37.0); MCV 79.4 fL (80.0-100.0); MEAN PLATELET VOLUME 10.1 fL (7.4-10.4); MONOCYTES 7.9 % (2-11); NEUTROPHILS 57.2 % (40-80); PLATELET COUNT 150 10x3/uL (130-400); RBC 4.57 10x6/uL (4.00-5.40); RDW 15.6 % (11.5-14.5); WBC 5.2 10x3/uL (4.8-10.8)
[2019-05-31 07:18] LABS: ANION GAP 10.7 mmol/L (8-16); CALCIUM 8.6 mg/dL (8.5-10.1); CARBON DIOXIDE 29.4 mmol/L (21.0-32.0); CREATININE - SERUM 1.6 mg/dL (0.6-1.3); POTASSIUM - SERUM 3.1 mmol/L (3.5-5.1)
[2019-05-31 07:30] VITALS: BP 140/50
--- NOTE | 2019-05-31 08:21 | NUR ---
AM MEDS GIVEN AT THIS TIME, PT IN BED, WATCHING TV. A/O X4, RESP EVEN AND NONLABORED ON RA. RT FA INFUSING NS AT 75CC/HR. MONITOR SHOWING SR WITH RATE OF 60. PT DENIES ANY NEEDS AT THIS TIME. CALL LIGHT IN REACH, NAD NOTED, WILL CONTINUE PLAN OF CARE.
--- NOTE | 2019-05-31 10:05 | NUR ---
PT WAS ABLE TO DEMOSTRATE HOW TO CHECK HER BLOOD SUGAR USING HER OWN MACHINE. WAS ALSO ABLE TO VERBALIZED UNDERSTANDING REGARDING DIABETIC DIET, WHAT FOODS TO EAT AND NOT TO EAT.
[2019-05-31] MEDS ORDERED: BUMETANIDE0.5 MG PO (10:43)
[2019-05-31] MEDS ORDERED: LEVEMIR FL100 UNIT/1 SC (10:44)
[2019-05-31] MEDS ORDERED: INSTA-GLUCOSE31 GM PO (10:47)
--- NOTE | 2019-05-31 11:46 | NUR ---
PROVIDED VERBAL AND WRITTEN DISCHARGE TEACHING TO PT AND FAMILY, ALL VERBALIZED UNDERSTANDING REGARDING TEACHING. ALSO PROVIDED DIABETIC TEACHING PAPERWORK. D/C RT FA IV WITH CATHETER TIP INTACT. PT LEFT UNIT VIA WHEELCHAIR, WITH ALL BELONGINGS, ACCOMPANIED BY FAMILY.
== END 2019-05-31 11:48 | disposition home or self-care (01) | DRG 637 ==
LOC: D.ER 09:49 → D.M3 14:48
PROVIDERS: Family Medicine; ADMIT Internal Medicine Nephrology; ATTEND Internal Medicine Nephrology
DX: E11.65 Type 2 diabetes mellitus with hyperglycemia (principal); I50.23 Acute on chronic systolic (congestive) heart failure; E87.1 Hypo-osmolality and hyponatremia; N17.9 Acute kidney failure, unspecified; I11.0 Hypertensive heart disease with heart failure; E87.6 Hypokalemia; D50.9 Iron deficiency anemia, unspecified; E78.5 Hyperlipidemia, unspecified; I25.10 Atherosclerotic heart disease of native coronary artery without angina pectoris; K21.9 Gastro-esophageal reflux disease without esophagitis

== ENCOUNTER → 2019-07-03 08:14 | Outpatient (CLI) | payer MEDICARE, BC ==
[2019-05-29 13:40] VITALS: BMI 27.2
[~2019-07-03 08:14] MED LIST changes: +BUMETANIDE0.5 MG PO; +INSTA-GLUCOSE31 GM PO; +LEVEMIR FL100 UNIT/1 SC
== END | disposition home or self-care (01) ==
LOC: D.HCCARDIO 08:14
PROVIDERS: ATTEND Internal Medicine Cardiovascular Disease
DX: I42.9 Cardiomyopathy, unspecified (principal)

== ENCOUNTER 2019-12-27 10:08 | Emergency (ER) | payer MEDICARE, BC ==
[~2019-12-27] VITALS: Ht 154.9 cm; Wt 65.9 kg
[2019-12-27 10:10] VITALS: Ht 154.9 cm; Wt 65.9 kg
[2019-12-27] MEDS ORDERED: BUMEX2 MG PO (10:16)
[2019-12-27] MEDS ORDERED: ELIQUIS2.5 MG PO (10:16)
[2019-12-27] MEDS ORDERED: FARXIGA10 MG PO (10:17)
[2019-12-27] MEDS ORDERED: GABAPENTIN100 MG PO (10:17)
[2019-12-27 10:36] LABS: BILIRUBIN NEGATIVE (NEGATIVE); GLUCOSE 1000 mg/dL (NEGATIVE); KETONE NEGATIVE (NEGATIVE); NITRITE POSITIVE (NEGATIVE); SPECIFIC GRAVITY 1.015 (1.005-1.020); UROBILINOGEN NORMAL (NORMAL)
[2019-12-27 10:40] LABS: WHITE CELLS - URINE >50 /hpf (NEGATIVE)
[2019-12-27 10:41] LABS: BACTERIA MODERATE /hpf (NEGATIVE); EPITHELIAL CELLS 0-5 /hpf (0-5)
[2019-12-27 10:55] LABS: BASOPHILS 0.2 % (0-2); EOSINOPHILS 1.9 % (0-7); HEMATOCRIT 39.1 % (36.0-48.0); HEMOGLOBIN 12.6 g/dL (12-16); IMMATURE GRANULOCYTES 0.2 % (0-5); LYMPHOCYTES 23.5 % (15-50); MCH 27.4 pg (26.0-34.0); MCHC 32.2 g/dL (31.0-37.0); MEAN PLATELET VOLUME 9.8 fL (7.4-10.4); MONOCYTES 7.8 % (2-11); NEUTROPHILS 66.4 % (40-80); PLATELET COUNT 175 10x3/uL (130-400); RDW 13.5 % (11.5-14.5); WBC 5.2 10x3/uL (4.8-10.8)
[2019-12-27 11:03] LABS: ANION GAP 12.5 mmol/L (8-16); CALCIUM 9.4 mg/dL (8.5-10.1); CARBON DIOXIDE 27.5 mmol/L (21.0-32.0); CREATININE - SERUM 1.9 mg/dL (0.6-1.3)
[2019-12-27 11:09] LABS: ALBUMIN 3.2 g/dL (3.4-5.0); BILIRUBIN - TOTAL 1.13 mg/dL (0.2-1.3)
[2019-12-27] MEDS ORDERED: CIPRO500 MG PO (12:16)
[2019-12-27 12:29] VITALS: BP 138/75
== END 2019-12-27 12:30 | disposition home or self-care (01) ==
LOC: D.ER 10:08
PROVIDERS: Emergency Medicine
DX: N30.00 Acute cystitis without hematuria (principal); E11.9 Type 2 diabetes mellitus without complications; Z79.4 Long term (current) use of insulin; I11.0 Hypertensive heart disease with heart failure; I50.9 Heart failure, unspecified; Z95.5 Presence of coronary angioplasty implant and graft; Z95.0 Presence of cardiac pacemaker; Z95.1 Presence of aortocoronary bypass graft

== ENCOUNTER 2020-05-20 11:17 | Emergency (ER) | payer MEDICARE, BC ==
[~2020-05-20] VITALS: Ht 154.9 cm; Wt 68.2 kg
[~2020-05-20 11:17] MED LIST changes: +BUMEX2 MG PO; +CIPRO500 MG PO; +ELIQUIS2.5 MG PO; +FARXIGA10 MG PO
[2020-05-20 11:27] VITALS: Ht 154.9 cm; Wt 68.2 kg
[2020-05-20 13:12] LABS: BILIRUBIN NEGATIVE (NEGATIVE); GLUCOSE 250 mg/dL (NEGATIVE); KETONE NEGATIVE (NEGATIVE); NITRITE NEGATIVE (NEGATIVE); UROBILINOGEN NORMAL (NORMAL)
[2020-05-20 13:18] LABS: BACTERIA FEW /hpf (NEGATIVE); EPITHELIAL CELLS 0-5 /hpf (0-5); RED CELLS - URINE RARE /hpf (0-5); WHITE CELLS - URINE 0-5 /hpf (NEGATIVE)
[2020-05-20] MEDS ORDERED: MOBIC7.5 MG PO (14:10)
[2020-05-20 14:27] VITALS: BP 170/79
== END 2020-05-20 14:28 | disposition home or self-care (01) ==
LOC: D.ER 11:17
PROVIDERS: Family Medicine
DX: M54.31 Sciatica, right side (principal); E11.9 Type 2 diabetes mellitus without complications; Z79.4 Long term (current) use of insulin; M54.5 Low back pain

== ENCOUNTER → 2020-12-31 09:52 | Outpatient (CLI) | payer MEDICARE, BC ==
[2020-05-20 11:27] VITALS: BMI 28.4
[~2020-12-31 09:52] MED LIST changes: +MOBIC7.5 MG PO
== END | disposition home or self-care (01) ==
LOC: D.HCCECHO 09:52
PROVIDERS: ATTEND Internal Medicine Cardiovascular Disease
DX: I34.0 Nonrheumatic mitral (valve) insufficiency (principal)